=== PATIENT | male | born 1955 | race Caucasian/White ===

== ENCOUNTER 2023-04-04 08:27 | Day surgery (SDC) | payer MEDICARE, OTHER, SELFPAY ==
[2023-04-04] VITALS (10 sets, daily range): BP systolic 123–144; BP diastolic 72–100; BMI 32.2
[2023-04-04] MEDS: LOW STRENGTH ASPIRIN 81 MG PO (08:44)
[2023-04-04] MEDS: NSS 296 ML IV (08:45)
--- NOTE | 2023-04-04 11:03 | ITS.CL.CATH ---
Com[employer] - Catheterization
Cardiac Catheterization
Procedure Report:
CARDIAC CATHETERIZATION REPORT
Date of Procedure: 04/04/2023
Referring: Patrick Salgado MD
Indication: Severe mitral regurgitation
HEMODYNAMIC DATA
AO: 128/86
LV: 128/20
LEFT VENTRICULOGRAPHY: The left ventricle appears to be at upper limit of normal in size. There is mild regurgitation degree of which is difficult to quantify angiographically. The overall systolic function is normal with a visually estimated EF
55-60%
CORONARY ANGIOGRAPHY
Dominance: Right
Left Main: 10-20% distal tapering
LAD: Mild calcification of the proximal and mid LAD with a focal 30% mid LAD lesion spanning the takeoff of the small second diagonal branch.
Circumflex: 50-60% ostial/proximal stenosis and a medium to large ramus intermedius branch. The circumflex system has mild luminal irregularities.
RCA: Large dominant vessel with mild luminal irregularities
Closure Device: None-the procedure was performed via the right radial artery. The Jairo's test was normal prior to the procedure.
Radiation (mGy): 310
DAP (cm2.Gy): 22.2
Fluoroscopy time: 2.6 minutes
CONCLUSIONS
1: Normal LV wall motion with EF 55-60%
2: Mitral regurgitation which cannot be quantified
3. Mild CAD as described
4. Favor mitral valve repair without branch vessel CABG
Copy to: Patrick Salgado MD, Ricardo Avila MD, Nick Carlin MD
David Barakat MD, [facility], [facility]
== END 2023-04-04 13:10 | disposition home or self-care (01) ==
LOC: CATH 08:27
PROVIDERS: ATTENDING PHYSICIAN Internal Medicine Cardiovascular Disease; FAMILY PHYSICIAN Family Medicine
DX: I34.0 Nonrheumatic mitral (valve) insufficiency (principal); I25.10 Atherosclerotic heart disease of native coronary artery without angina pectoris; I10 Essential (primary) hypertension; Z79.82 Long term (current) use of aspirin
CPT/HCPCS: 93005; 93458; C1894; Q9967

== ENCOUNTER → 2023-04-13 14:29 | Outpatient (REF) | payer MEDICARE, OTHER, SELFPAY | LOC: RAD 14:29 | PROVIDERS: ATTENDING PHYSICIAN Thoracic Surgery (Cardiothoracic Vascular Surgery) | DX: I34.0 Nonrheumatic mitral (valve) insufficiency (principal); Z01.818 Encounter for other preprocedural examination | CPT/HCPCS: 71275; 74174; Q9967 ==

== ENCOUNTER 2023-04-19 05:04 | Inpatient (IN) | payer MEDICARE, OTHER, SELFPAY ==
[2023-04-12 12:27] VITALS: BMI 30.3
[2023-04-12 12:56] LABS: % Basophils 1.2 % (0-2); % Eosinophils 6.4 % (0-6); % Immature Granulocytes 0.3 % (0-0.5); % Neutrophils 50.1 % (42.2-75.2); Absolute Basophils 0.1 10^3/uL (0-0.2); Absolute Eosinophils 0.4 10^3/uL (0-0.7); Absolute Lymphocytes 1.9 10^3/uL (1.2-3.4); Absolute Monocytes 0.5 10^3/uL (0.1-0.6); Absolute Neutrophils 2.9 10^3/uL (1.4-6.5); Hematocrit 41.1 % (39.0-52.0); Hemoglobin 14.7 g/dL (13.0-18.0); Mean Corp Hgb Conc. 35.8 g/dL (33.0-37.0); Mean Corpuscular Volume 89.3 fL (80.0-94.0); Mean Platelet Volume 9.7 fL (7.4-10.4); Nucleated Red Blood Cells % 0 % (-); Platelet Count 243 10^3/uL (130-400); Red Cell Dist. Width 11.9 % (11.5-14.5); White Blood Cell Count 5.8 10^3/uL (4.8-10.8)
[2023-04-12 13:02] LABS: INR 1.05; PT 13.8 Sec (11.4-14.6)
[2023-04-12 13:03] LABS: APTT 28.8 Sec (23.4-35.0)
[2023-04-12 13:26] LABS: Urine Albumin Negative (Neg - Trace); Urine Bilirubin Negative (Negative); Urine Character Clear (Clear); Urine Color Straw; Urine Glucose Negative (Negative); Urine Ketone Negative (Negative); Urine Leukocyte Negative (Negative); Urine Nitrite Negative (Negative); Urine Occult Blood Negative (Negative); Urine Urobilinogen Negative (Neg - 1+); Urine pH 6.5 (5.0-9.0)
[2023-04-12 13:31] LABS: ALT (SGPT) 32 U/L (0-50); AST (SGOT) 32 U/L (17-59); Albumin 4.8 g/dl (3.5-5.0); Alkaline Phosphatase 63 U/L (38-126); Blood Urea Nitrogen 16 mg/dl (9-20); Calcium 9.6 mg/dl (8.4-10.2); Carbon Dioxide 29 mmol/L (22-30); Chloride 101 mmol/L (98-107); Direct Bilirubin 0.6 mg/dl (0.0-0.4); Estimated Creatinine Clearance > 125 ml/min; Glucose 96 mg/dl (70-99); Potassium 4.6 mmol/L (3.5-5.1); Sodium 137 mmol/L (135-145); Total Bilirubin 0.7 mg/dl (0.2-1.3); Total Protein 7.9 g/dl (6.3-8.2); eGFR > 60.00
--- NOTE | 2023-04-12 14:09 | CM ---
CM met w/ patient for PATs for planned MVR, 04/19
Pt. informs that he resides in a private, 2 story home w/ 2-3 JM w/ spouse. Functionally, patient is quite indep. at baseline without use of any assisted device. Pt. has CPAP machine, which he uses regularly.
Patient has Rx plan and uses [facility] in [place] for Rx needs.
Reviewed pre and post op routines.
Soap, shower instructions and Cardiac Surgery booklet provided.
Discussed post op restrictions, MD appointments, Cardiac Rehab and visit from CT Transitional Care RN/ pt. agreeable to this.
Plan is for CT Surgery, 04/19.
Anticipated DC plan is for home w/ CT Transitional Care RN.
Will follow.
[2023-04-19] VITALS (7 sets, daily range): BP systolic 85–149; BP diastolic 84–87; BMI 29.6
[2023-04-19] MEDS: LOPRESSOR 25 MG PO (05:21)
[2023-04-19] MEDS: MAGNESIUM OXIDE 500 MG PO (05:21)
[2023-04-19] MEDS: PROTONIX 40 MG PO (05:21)
[2023-04-19] MEDS: BACTROBAN 2% OINTMENT 1 APPLIC NASAL ×2 (05:21→19:43)
--- NOTE | 2023-04-19 05:30 | PTCARENOTE ---
pt admitted into room 2263. VS and weight obtained. pt confirms 2 showers @ home and NPO since midnight. admission questions and med rec completed. clip prep and CHG wipes done. ABO drawn and sent. pre-op meds given. at bedside.
--- NOTE | 2023-04-19 06:29 | W.CVOR.SURPR ---
CVOR Surgeon Immed Pre Op
-
I have examined this patient prior to performance of the scheduled procedure.
The patient's condition is unchanged from the time of the dictated/written History and
Physical and the patient is able to undergo the scheduled procedure.
MV Repair
[2023-04-19 07:27] LABS: ACT+ - POC 98 Seconds (82-134)
[2023-04-19 07:30] LABS: B.E. - POC -4.6 mmol/L; Glucose - POC 90 mg/dl (65-99); HCO3 - POC 20 mmol/L (21-29); Hematocrit - POC 35 % PCV (42-52); Hemodilution- POC Yes; O2 Saturation %Calculated-POC 99.7 5 (92-96); PCO2 - POC 35 mmHg (35-45); PO2 - POC 211 mmHg (80-100); Potassium - POC 3.3 mmol/L (3.6-5.0); Sodium - POC 145 mmol/L (135-145); pH - POC 7.36 (7.35-7.45)
[2023-04-19 07:50] LABS: Urine Albumin Negative (Neg - Trace); Urine Bilirubin Negative (Negative); Urine Character Clear (Clear); Urine Color Yellow; Urine Glucose Negative (Negative); Urine Ketone Negative (Negative); Urine Leukocyte Negative (Negative); Urine Nitrite Negative (Negative); Urine Occult Blood Negative (Negative); Urine Urobilinogen Negative (Neg - 1+)
--- NOTE | 2023-04-19 07:58 | CM ---
Reviewed chart. Mr. Anders is in the operating room today. Prior to admission he resides with his spouse in a two story home with three steps to enter. Prior to admission he was independent with ambulation and adls. He has a CPAP Machine at home. He
has a prescription plan and uses [facility]. Medical work-up in progress. The discharge plan is to return home with his spouse and a home visit by the Cardiothoracic Transitional Care Nurse when medically stable.
[2023-04-19 08:28] LABS: ACT+ - POC 533 Seconds (82-134)
[2023-04-19 08:55] LABS: B.E. - POC 0.7 mmol/L; Glucose - POC 122 mg/dl (65-99); HCO3 - POC 26 mmol/L (21-29); Hematocrit - POC 30 % PCV (42-52); Hemodilution- POC Yes; Hemoglobin Calculated - POC 10.3; Ionized Calcium - POC 1.08 mmol/L (1.12-1.27); O2 Saturation %Calculated-POC 99.9 5 (92-96); PCO2 - POC 46 mmHg (35-45); PO2 - POC 297 mmHg (80-100); Potassium - POC 4.7 mmol/L (3.6-5.0); Sodium - POC 139 mmol/L (135-145); pH - POC 7.37 (7.35-7.45)
[2023-04-19 09:02] LABS: ACT+ - POC 609 Seconds (82-134)
--- NOTE | 2023-04-19 09:25 | W.PN.CD ---
Today's Communication / Plan
-
MVR today.
Impression / Plan
-
Impression/Plan: 67 y/o male with HTN, HLD and severe, eccentric degenerative mitral regurgitation admitted for elective surgical mitral valve repair.
#Severe MR
-Chronic.
-In the OR today for repair.
-Expectant routine post operative management.
#Hypertension
-Chronic, stable.
-Adjust medications as needed post procedure.
#HLD
-Chronic, stable.
-Continue pravastatin.
Subjective/Interval History:
In OR for surgery.
DATA:
CTA Chest/Abdomen/Pelvis, 04/13/2023:
IMPRESSION:
Thoracic and abdominal aorta within the limits of normal in caliber, homogeneous in appearance with some calcific atherosclerotic changes. No findings to suggest thoracic or abdominal aortic dissection.
Retroaortic left renal vein, congenital variants of normal.
Coronary artery calcifications.
Elevated right hemidiaphragm.
Mild thickening of the left adrenal gland.
Mildly enlarged prostate.
Cardiac Catheterization, 04/04/2023:
LEFT VENTRICULOGRAPHY: The left ventricle appears to be at upper limit of normal in size.� There is mild regurgitation degree of which is difficult to quantify angiographically.� The overall systolic function is normal with a visually estimated EF
55-60%
CORONARY ANGIOGRAPHY
Dominance: Right
Left Main: 10-20% distal tapering
LAD: Mild calcification of the proximal and mid LAD with a focal 30% mid LAD lesion spanning the takeoff of the small second diagonal branch.
Circumflex: 50-60% ostial/proximal stenosis and a medium to large ramus intermedius branch.� The circumflex system has mild luminal irregularities.
RCA: Large dominant vessel with mild luminal irregularities
SARAH, 03/21/2023:
CONCLUSIONS
�Normal left ventricular systolic function. Left ventricular ejection fraction
�is 60%.
�
�Severe mitral regurgitation. Prolapse of the posterior (P2) mitral leaflet was
�present.
�
�No significant change since the prior study of Mar 10.
Physical Exam
Vital Signs/Labs
Vital Signs
Temp Resp BP Pulse Ox
36.7 C 18 142/84 95
04/19/23 05:15 04/19/23 05:15 04/19/23 05:04 04/19/23 05:04
04/17/23 04/18/23 04/19/23
11:59 11:59 11:59
Actual Weight 96.3 kg
04/12/23 12:36
04/12/23 12:36
PT 13.8 Sec (11.4-14.6) 04/12/23 12:36
INR 1.05 04/12/23 12:36
APTT 28.8 Sec (23.4-35.0) 04/12/23 12:36
Physical Exam
Exam deferred.
Data Reviewed
-
Date of Service: April 19, 2023
Medical Decision Making: Reviewed Test Results, Test Interpretation and Review of Case with other Provider
EKG: Report Reviewed by me
Echo: Report Reviewed by me
X-Ray/CT/US/MRI/NUC/PET: Report Reviewed by me
Medical Tests (PFT, Pathology etc): Report Reviewed by me
Labs: Labs Reviewed by me
Old Records: Reviewed
[2023-04-19 09:29] LABS: B.E. - POC 1.1 mmol/L; Glucose - POC 163 mg/dl (65-99); HCO3 - POC 26 mmol/L (21-29); Hematocrit - POC 35 % PCV (42-52); Hemodilution- POC Yes; Ionized Calcium - POC 1.12 mmol/L (1.12-1.27); O2 Saturation %Calculated-POC 99.9 5 (92-96); PCO2 - POC 42 mmHg (35-45); PO2 - POC 255 mmHg (80-100); Potassium - POC 5.7 mmol/L (3.6-5.0); Sodium - POC 139 mmol/L (135-145); pH - POC 7.41 (7.35-7.45)
[2023-04-19 09:32] LABS: ACT+ - POC 538 Seconds (82-134)
[2023-04-19 10:12] LABS: Glucose - POC 110 mg/dl (65-99); HCO3 - POC 24 mmol/L (21-29); Hematocrit - POC 34 % PCV (42-52); Hemodilution- POC Yes; Hemoglobin Calculated - POC 11.7; Ionized Calcium - POC 1.11 mmol/L (1.12-1.27); O2 Saturation %Calculated-POC 99.9 5 (92-96); PCO2 - POC 41 mmHg (35-45); PO2 - POC 280 mmHg (80-100); Potassium - POC 4.7 mmol/L (3.6-5.0); Sodium - POC 142 mmol/L (135-145); pH - POC 7.38 (7.35-7.45)
[2023-04-19 10:15] LABS: ACT+ - POC 485 Seconds (82-134)
[2023-04-19 10:43] LABS: B.E. - POC -1.6 mmol/L; Glucose - POC 103 mg/dl (65-99); HCO3 - POC 22 mmol/L (21-29); Hematocrit - POC 36 % PCV (42-52); Hemodilution- POC Yes; Hemoglobin Calculated - POC 12.1; Ionized Calcium - POC 1.08 mmol/L (1.12-1.27); O2 Saturation %Calculated-POC 99.9 5 (92-96); PCO2 - POC 34 mmHg (35-45); PO2 - POC 295 mmHg (80-100); Potassium - POC 4.1 mmol/L (3.6-5.0); Sodium - POC 143 mmol/L (135-145); pH - POC 7.42 (7.35-7.45)
[2023-04-19 10:46] LABS: ACT+ - POC 543 Seconds (82-134)
[2023-04-19 11:20] LABS: B.E. - POC -1.8 mmol/L; Glucose - POC 128 mg/dl (65-99); HCO3 - POC 23 mmol/L (21-29); Hematocrit - POC 35 % PCV (42-52); Hemodilution- POC Yes; Hemoglobin Calculated - POC 11.9; Ionized Calcium - POC 1.12 mmol/L (1.12-1.27); O2 Saturation %Calculated-POC 99.9 5 (92-96); PCO2 - POC 38 mmHg (35-45); PO2 - POC 325 mmHg (80-100); Potassium - POC 3.9 mmol/L (3.6-5.0); Sodium - POC 144 mmol/L (135-145); pH - POC 7.39 (7.35-7.45)
[2023-04-19 11:24] LABS: ACT+ - POC 508 Seconds (82-134)
[2023-04-19 11:46] LABS: ACT+ - POC 101 Seconds (82-134)
[2023-04-19 11:49] LABS: B.E. - POC -2.8 mmol/L; Glucose - POC 131 mg/dl (65-99); HCO3 - POC 23 mmol/L (21-29); Hematocrit - POC 34 % PCV (42-52); Hemodilution- POC Yes; Hemoglobin Calculated - POC 11.4; Ionized Calcium - POC 1.23 mmol/L (1.12-1.27); O2 Saturation %Calculated-POC 99.5 5 (92-96); PCO2 - POC 41 mmHg (35-45); PO2 - POC 174 mmHg (80-100); Potassium - POC 3.3 mmol/L (3.6-5.0); Sodium - POC 144 mmol/L (135-145); pH - POC 7.35 (7.35-7.45)
--- NOTE | 2023-04-19 12:28 | W.PN.CT.SURG ---
Addendum entered and electronically signed by Patrick Salgado MD 04/19/23 12:51:
Look back retrospectively, would say that he has very mild prolapsing of the anterior leaflet as well, as the free margin comes up the annular plane on the anterior leaflet. Type 2 pathology with bileaflet prolapse, worse on posterior leaflet with
flail of P2 scallop.
Original Note:
CT Surgery Operative Note
-
CARDIAC SURGERY OPERATIVE REPORT
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
Postoperative Diagnosis: Same
Procedure(s) Performed:
1. Standard sternotomy with aortic and bicaval cannulation
2. Complex/radical mitral valve repair (32 mm band annuloplasty, 2 pairs of [place]-Jose cords to the anterior leaflet, 2 pairs of [place]-Jose cords to the posterior leaflet, triangular resection of the posterior leaflet at the P2 scallop, free edge
remodeling of the posterior leaflet, free edge remodeling at the A2 A3 scallop)
3. Placement of temporary atrial ventricular pacing wires
4. Transesophageal echocardiography
Date of Surgery: 04/19/2023
Comorbidities:
1. Degenerative mitral valve disease, myxomatous mitral valve, type II pathology, symptomatic
2. Hypertension
3. Obstructive sleep apnea, CPAP
4. Obese
Attending Surgeon: Patrick Salgado MD, MS
Assistants: Tash Garvey PA-C (present and necessary to psychological assistant, retraction, suction, exposure, suture management, and wound closure under my direction)
Anesthesiology: Too Rider MD and Nora Delcid CRNA
Scrub and Circulating RNs: Sharron Rivera, IVELISSE, Victor Manuel Ruiz RN
Dry Wall Sprayer: Yasmeen Rivas CCP
Anesthesia: GETA
EBL: per perfusion records
Products: None
CPB Time: 176 minutes
Aortic Cross Clamp Time: 150 minutes (two clamp runs)
Indication(s) for Procedures: This is an otherwise healthy 67-year-old male with known mitral valve insufficiency. He is being followed in outpatient. He clearly describes an event resulting in shortness of breath that was worsening with exertion
several months ago. Further investigation of his mitral valve demonstrated a large flail segment with severe insufficiency. He met stage D symptomatology and therefore class I indication for mitral valve intervention.
Mitral Valve Description: Myxomatous generation of mitral valve leaflets, bileaflet thickening, very tall and long posterior leaflet with a flail segment at the P2 scallop with multiple torn cords, the posterior leaflet was almost as long as the
anterior leaflet. Severely dilated annulus.
Findings: His ventricular ejection fraction preoperatively was 60% with a mildly dilated left ventricle. Following surgery his EF remained the same at 60% with no regional wall motion abnormalities. His mitral valve initially was repaired with a
36 mm band and multiple cords. However valve was not able to be tested after the repair given the severe dilation of his annulus and redundant leaflets. I elected to remove the cross-clamp in order to evaluate his valve under dynamic load. This
revealed that he had pseudo prolapsing of the anterior leaflet as the free margin came up to the annular plane. There was moderate residual mitral valve insufficiency directed in the posterior direction. I elected to recross-clamp and re-arrest
the heart. I entered through the same left atrial incision and removed removed the previous 36 mm band and replaced this with a 32 mm band which was secured to place with 12 nonpledgeted, 2-0 Ethibond sutures secured with core knots. I ultimately
placed 2 pairs of CV 4 [place]-Jose cords to the anterior leaflet at the A2 scallop followed by 2 pairs of CV 4 [place]-Jose cords to the posterior leaflet at the P1 P2 scallop and P2 P3 scallops after performing a large triangular resection of the
midportion of the P2 scallop to reduce the height of the leaflet overall. The free edge of the posterior leaflet was remodeled as was the A2 scallop free edges using 5-0 prolene. Testing demonstrated a competent valve and upon removal of the
cross-clamp to coming down on cardiopulmonary bypass there was [id number] residual mitral valve insufficiency with a good coaptation height, no systolic anterior motion, and a mean gradient of 2 across the valve with an index greater than 2. RV
function was normal.
Specimen(s): Posterior leaflet cords and posterior leaflet tissue.
Prosthesis: 32 mm Ramesh Physio Flex Band, 4 pairs of CV 4 GoreTex neochords.
Description of Procedure: The patient was taken to the operating room. Their identity and procedure to be performed were verified and they were positioned supine on the operating table. Induction via general anesthesia with endotracheal intubation
was performed and central venous access and arterial monitoring were inserted. A preoperative transesophageal echocardiogram was performed to assess cardiac function and valvular function. The patient was then prepped and draped from chin to feet in
a sterile fashion. A preoperative time-out was performed with all members of the team present. A midline chest incision was performed along with median sternotomy. The innominate vein was isolated. Full heparinization was given (a total of 60,000
units). We created a pericardial well. The aortic cannulation site was chosen where it was soft, pliable, and free of calcium. Cannulation was performed with an arterial cannula in the ascending aorta, angled metal tip cannular in the superior vena
cava and straight bendable cannula in the inferior vena cava. The arterial cannula line had an appropriate bounce and correlating pressures. Next, a root vent/antegrade cannula was inserted into the ascending aorta. The ACT was confirmed to be over
400 and retrograde autologous priming was performed before commencing cardiopulmonary bypass. The pulmonary artery was away from the aorta to facilitate a clamp site. Sondergaard�s groove was developed after creating the oblique sinus. The
aortic cross-clamp was placed after decreasing the flow on the bypass and mean arterial pressure. A total of 1.2L initial dose of antegrade Del-Nido cardioplegia solution was given and planned for re-dosing every 75 minutes as necessary. There was
rapid electro-mechanical arrest of the heart at 300 cc of cardioplegia. The left ventricle was observed for distention on echocardiogram and manual palpation. Cold slush was placed into a lap on the RV and we systemically cooled to 34 degrees
centigrade.
Carbon dioxide was used to flood the field. The mitral valve was access via the intra-atrial groove followed by valve analysis. The mitral valve was repaired as described above. Also unable to test the valve intraoperatively following the repair
due to the anatomy and therefore I elected to remove the cross-clamp on the first attempt and evaluate the valve under dynamic load this revealed a posterior directed jet and redundant anterior leaflet that was pseudo prolapsing as the free margin
To the annular plane. I then re-crossclamped and delivered an additional 600 cc of antegrade cardioplegia with rapid electro myocardial quiescence at 100 cc of antegrade dosing. Previous 36 mm band was removed along with all 13 core knots. The
valve was then inspected and we repaired now with a 32 mm band as described above. The left ventricular vent was repositioned across the mitral valve into the left ventricular and the left atrium was closed with a 3-0 prolene.
De-airing maneuvers were performed and temporary bipolar ventricular pacing wires were placed on the base of the right ventricle along with temporary atrial pacing wires at the SVC right atrial junction. The patient was placed in a Trendelenburg
position and flows on bypass were lowered. The aortic cross clamp was removed and flows were slowly brought back up. The left atrial suture line was hemostatic. Transesophageal echocardiography revealed no evidence of systolic anterior motion and
ventricular function was normal. Once de-airing was satisfactory the left ventricular and root vents were removed. After verifying acceptable parameters, we initiated weaning from cardiopulmonary bypass. Once we were off cardiopulmonary bypass, the
venous cannulas was clamped and removed sequentially. A test dose of protamine was administered and the patient was monitored for any adverse reaction before resuming protamine. Once half of the protamine dose was delivered, pump suckers were turned
off and the systolic blood pressure was lowered for aortic decannulation. The aortic cannula was removed and purse strings were tied down. All cannulation sites were oversewn with a 4-0 prolene. The left atrial suture line was inspected and
hemostasis was confirmed. Mediastinal hemostasis was obtained. Two #24 Yeyo drains were placed within the pericardium and 1 additional 19 Yeyo drain into the right pleural space. The sternum was approximated with 4 #7 single and 3 #8 double
stainless steel wires. Fascia was approximated with #1 vicryl suture. The subcutaneous, dermis and epidermis were closed in layers in a running fashion. The skin wound was cleansed and dressed. Local was injected around the chest tube insertion
sites along the incision
All instrument, sponge, and needle counts were confirmed to be correct x 2 at the end of the operation. The patient was transferred to the cardiac intensive care unit in critical but stable condition.
I, Dr. Patrick Salgado, was present, scrubbed for, and performed all critical elements of this procedure.
Patrick Salgado MD, MS
Cardiothoracic Surgeon
[facility]
This dictation was created using the [employer]amify dictation system. Please excuse any grammatical, typographical, or 'sound alike' errors
--- NOTE | 2023-04-19 12:30 | PTCARENOTE ---
Received patient from OR @ 1230. Pt on levophed, precedex and insulin gtts. Ventilator settings SIMV 12/550/60%/5. BP stable. Pulse ox 90%. Apaced, asystole under pacer. ABG, CXR, EKG done per post op protocol - CTNP aware. Pt lightly sedated,
opened eyes, followed commands. Now resting. Heart sounds regular with rub. [place] locked @45 - RIJ cordis. Co/CI 5.29/2.45. Pulses are palpable radial and DP. No edema. ETT #8.0 24cm @ right lip. Lung sounds audible throughout. Bowel sounds
hypoactive. Pagan inplace draining clear yellow urine. CT Meds x2, R pleural x1. Wan zoe in place for temp 95.7
--- NOTE | 2023-04-19 12:34 | W.PN.UPDATE ---
Addendum entered and electronically signed by AMARA Mcnally 04/19/23 13:46:
#Junctional Bradycardia
- Hold BB
- Continue A-Pacing; may need eventual PPM
- Cardiology consulted
Original Note:
Update Note
Progress Note Update
IV fluids: 1000
Crystalloid:� 1100
U.O.:� 700
UF:� 4300
Blood:� None
Wires:� A+V wires
Inotropes:� None
Pressors:� Levophed
Sedatives:� Precedex
�
NEURO: sedated on precedex, pupils +2mm B/L
RESP: #8OT @24cm> /60/5. Lungs clear B/L. 2 mediastinal (30ml on arrival) and R pleural (0cc on arrival) chest tubes to -20cm suction. Sanguineous drainage
CV: RRR +S1, S2, no S3, no�rub, no murmur. Dermabond to median sternotomy. RIJ w/[place] locked @ 45cm. PA 10/03 (19); CVP 6; C.O 5.8/CI 2.8
ABD: round, soft, no BS
EXT: no edema, +2/4 DP pulses B/L, no femoral bruit, left radial A-line intact
: Pagan with clear yellow urine
�
A/P: POD #0 s/p Complex/radical mitral valve repair (32 mm band annuloplasty, 2 pairs of [place]-Jose cords to the anterior leaflet, 2 pairs of [place]-Jose cords to the posterior leaflet, triangular resection of the posterior leaflet at the P2 scallop,
free edge remodeling of the posterior leaflet, free edge remodeling at the A2 A3 scallop)
SARAH: EF�60% NML RV.
- wean FIO2 and precedex for goal extubation
>>Current Vent settings SIMV /60/5; ABG & CXR pending
>>continue CXR daily and PRN
- Wean Levo for goal MAPs >65; CI >2
- Monitor CT output
>> Will start ASA 81mg 6 hours post procedure if no bleeding
�
# acute surgical blood loss anemia-expected
- trend CBC per protocol
- t/c Fe and Vit C on POD #1
�
#Hypertension
- Will restart home meds as able
- Will start BB POD#1 if able
# Hyperglycemia (A1C 6.0)
- insulin infusion x 24h
�
# Hyperlipidemia
- resume�pravastatin when able
[2023-04-19 12:37] LABS: Glucose - Point of Care 129 mg/dl (70-99)
[2023-04-19] MEDS: ALBUMIN 5% 250 IV ×2 (12:43→14:46)
[2023-04-19] MEDS: PEPCID 20 MG IV ×2 (12:44→19:43)
[2023-04-19] MEDS: NSS (PRESERVATIVE FREE) 8 ML IV ×2 (12:44→19:43)
[2023-04-19 12:49] LABS: B.E. -2.3 mmol/L; HCO3 24.6 mmol/L (21-28); Ionized Calcium 1.23 mMOL/L (1.15-1.33); O2 Saturation % 93.8 % (94-98); PCO2 50 mmHg (35-48); PO2 73 mmHg (83-108); Potassium 3.8 mMOL/L (3.5-5.1); Sodium 139 mMOL/L (136-145)
[2023-04-19 12:50] LABS: Hematocrit 35.6 % (39.0-52.0); Hemoglobin 12.3 g/dL (13.0-18.0); Platelet Count 170 10^3/uL (130-400)
[2023-04-19 13:02] LABS: INR 1.45; PT 17.8 Sec (11.4-14.6)
[2023-04-19 13:09] LABS: Blood Urea Nitrogen 17 mg/dl (9-20); Estimated Creatinine Clearance 112 ml/min; Glucose 138 mg/dl (70-99); Magnesium 3.5 mg/dl (1.6-2.3)
--- NOTE | 2023-04-19 13:22 | CON.INTV ---
Consultation
Consultation Request
Date/Time Consultation Requested: 04/19/2023-1 PM
Date/Time Consultation Performed: 04/19/2023-1:30 PM
Requesting Provider: Dr. Salgado
Performing Provider: Dr. Anthony
Reason for Consultation: Postoperative ventilator/critical care management
Medical History
-
Chief Complaint: Severe mitral regurgitation
History of Present Illness:
67-year-old male with history of hypertension, hyperlipidemia and severe eccentric degenerative mitral regurgitation underwent mitral valve repair-waiter/waitress bar consulted for postoperative ventilator/critical care management 04/19/2023. Patient is
sedated on the ventilator and review of systems was unobtainable. Intraoperative records were reviewed. Chest tube output noted. Pressor management noted.
Past Medical History
Past Medical History: None (Hypertension. Hyperlipidemia. Severe eccentric degenerative mitral regurgitation. Right knee torn meniscus.)
Social History
Tobacco: Non-smoker
Alcohol: Occasional
Drug: None
Living: With Family
Occupational Exposures: No known tuberculosis exposure
Environmental Exposures: No known asbestos exposure
Family History
Family History: Reviewed & Not Pertinent (CAD)
Allergies / Home Medications
Allergies
Allergy/AdvReac Type Severity Reaction Status Date / Time
No Known Allergies Allergy Verified 04/19/23 05:17
Home Medications
Medication Instructions Recorded Confirmed Last Taken Type
L.acidoph, paracasei,B. lactis 10 1 ea PO HS 03/04/20 04/19/23 04/11/23 08:00 History
billion cell capsule
amlodipine 10 mg tablet (Norvasc) 10 mg PO DAILY 03/04/20 04/19/23 04/18/23 08:00 History
aspirin 81 mg tablet,delayed 81 mg PO HS 03/04/20 04/19/23 04/18/23 08:00 History
release
hydrochlorothiazide 12.5 mg tablet 12.5 mg PO DAILY 03/04/20 04/19/23 04/18/23 08:00 History
losartan 50 mg tablet 50 mg PO DAILY 03/04/20 04/19/23 04/17/23 08:00 History
multivitamin 1 ea PO DAILY 03/09/20 04/19/23 04/18/23 08:00 History
ascorbic acid (vitamin C) 500 mg 500 mg PO HS 03/21/23 04/19/23 04/18/23 08:00 History
tablet (Vitamin C)
fiber 1 cap PO BID 03/21/23 04/19/23 04/18/23 08:00 History
omega 0-mra-yvg-fish oil 1,200 mg 1 cap PO BID 03/21/23 04/19/23 04/12/23 08:00 History
(144 mg-216 mg) capsule (Fish Oil)
vitamin E 100 unit tablet 100 unit PO HS 04/04/23 04/19/23 04/17/23 21:00 History
pravastatin 40 mg tablet 40 mg PO DAILY 04/10/23 04/19/23 04/18/23 08:00 History
Review of Systems
-
Unable to Obtain full review of systems at this time due to: Patient Intubation
Vitals / Labs / Diagnostic Testing
Vital Signs
Temp Resp BP Pulse Ox
96.2 F L 18 142/84 90
04/19/23 13:00 04/19/23 05:15 04/19/23 05:04 04/19/23 12:30
Lab Data
04/19/23 12:36
Laboratory Results
04/19/23
12:36
PT 17.8 H
INR 1.45
APTT 29.0
pH 7.30 L
pCO2 50 H
pO2 73 L
HCO3 24.6
O2 Delivery Level
Diagnostic Testing:
Physical Exam
-
Exam:
Well-nourished and well-developed in no apparent distress
HEENT-atraumatic, normocephalic, oral tracheal intubation
Heart-regular rate and rhythm-no murmurs, rubs or gallops
Chest-clear to auscultation, no wheezes, crackles, median sternotomy bandage is not removed
Abdomen soft nondistended
Extremities-no cyanosis, clubbing, edema and good peripheral pulses
Integument-intact, no rashes, lesions or ecchymosis
Neurologically not alert, not oriented, not moving any of his extremities sedated on a ventilator
Assessment
-
67-year-old male with history of hypertension, hyperlipidemia and severe eccentric degenerative mitral regurgitation underwent mitral valve repair-waiter/waitress bar consulted for postoperative ventilator/critical care management 04/19/2023.
Assessment
Mitral regurgitation-severe eccentric degenerative
Status post mitral valve repair via standard sternotomy-complex/radical mitral valve repair-Dr. Salgado-04/19/2023
Mild anemia-hemoglobin 12.3
Mild hyperglycemia-blood sugar 138
Elevated right hemidiaphragm
Conditions present prior to admission:
Hypertension.
Hyperlipidemia.
Severe eccentric degenerative mitral regurgitation-status post repair 04/19/2023
Elevated right hemidiaphragm
Right knee torn meniscus.
Plan
Ventilator settings reviewed-minute ventilation increased-some acidosis
FiO2 will be weaned-currently on 60% with marginal saturations-May be related to lying flat with elevated right hemidiaphragm, does not seem to be significantly fluid overloaded
Arterial blood gases will be monitored
Spontaneous breathing trial will be attempted with hopeful extubation after anesthesia/sedation wear off
Pulmonary artery catheter parameters will be followed
Pressors/antihypertensive/inotropes/diuretics will be provided as needed
Monitor chest tube output
Monitor hemoglobin
Monitor platelet count and coags
Transfuse blood product if needed
CT surgery following chest tubes
Monitor blood sugar
Insulin drip per protocol
Aspiration precautions
VAP prevention protocol
DVT prophylaxis
Early nutrition
Early mobilization
With elevated right hemidiaphragm that is significant I would consider outpatient pulm evaluation with PFTs and possibly sniff testing
Critical care statement: A total of 46 minutes of critical care time was provided for this patient today. This includes management of ventilator, spontaneous breathing trial, arterial blood gases, pressors, of unstable vital signs, evaluation of the
patient at bedside, reviewing the patient's pertinent medical records including radiographs, microbiology, laboratory evaluations, and discussion with primary team and critical care nursing.
Diagnostic data:
Chest x-ray 04/19/2023-no pneumothorax, endotracheal tube tip in trachea above the sunita, elevated right hemidiaphragm, markedly low lung volumes
CT chest abdomen and pelvis 04/13/2023-thoracic and abdominal aorta within normal caliber, retroaortic left renal vein, elevated right hemidiaphragm, mildly elevated prostate
Echocardiogram 03/21/2023-EF 60%, severe mitral regurgitation
Cardiac catheterization 04/04/2023-EF 55-60%, 10 to 20% distal tapering left main, 30% mid LAD lesion, 50 to 60% ostial/proximal stenosis
Data Reviewed
-
EKG: Report reviewed by me
Radiology: Report reviewed by me
Medical Tests (Nuc Med, Echo etc): Report reviewed by me
Labs: Labs reviewed by me
Old Records: Reviewed
Critical Care Time (in minutes): 46
[2023-04-19] MEDS: NSS 500 IV (13:23)
[2023-04-19] MEDS: NOVOLOG FLEXPEN SC ×2 (13:23→15:47)
[2023-04-19] MEDS: TYLENOL PO ×3 (13:24→21:49)
[2023-04-19] MEDS: KCL 50 IV ×2 (13:24→14:27)
[2023-04-19] MEDS: STERILE WATER FOR INJECTION 16 ML IV ×2 (13:25)
[2023-04-19] MEDS: PRAVACHOL PO (13:25)
[2023-04-19] MEDS: ZINACEF 1500 MG IV ×2 (13:25)
[2023-04-19 13:27] LABS: HCO3 22.2 mmol/L (21-28); O2 Saturation % 91.4 % (94-98); PCO2 44 mmHg (35-48); PO2 63 mmHg (83-108); pH 7.31 (7.35-7.45)
[2023-04-19 14:08] LABS: Glucose - Point of Care 149 mg/dl (70-99)
[2023-04-19 14:16] LABS: B.E. -3.9 mmol/L; HCO3 21.6 mmol/L (21-28); Ionized Calcium 1.08 mMOL/L (1.15-1.33); O2 Saturation % 93.8 % (94-98); PCO2 40 mmHg (35-48); PO2 68 mmHg (83-108); Sodium 139 mMOL/L (136-145); pH 7.34 (7.35-7.45)
[2023-04-19] MEDS: VENTOLIN NEBULES 2.5 MG INH (14:44)
[2023-04-19] MEDS: CALCIUM CHLORIDE 10% SYRINGE 50 ML IV (14:55)
[2023-04-19] MEDS: CALCIUM CHLORIDE 10% SYRINGE 50 MG IV (14:55)
[2023-04-19 15:17] LABS: Glucose - Point of Care 133 mg/dl (70-99)
[2023-04-19 15:36] LABS: B.E. -3.7 mmol/L; HCO3 20.4 mmol/L (21-28); Ionized Calcium 1.16 mMOL/L (1.15-1.33); O2 Saturation % 98.3 % (94-98); PCO2 33 mmHg (35-48); PO2 111 mmHg (83-108); Potassium 4.4 mMOL/L (3.5-5.1); Sodium 139 mMOL/L (136-145)
--- NOTE | 2023-04-19 16:00 | PTCARENOTE ---
Apaced AAI @70 BPM. VSS on levo, precedex and insulin. Assessment unchanged. Pt awakes follows simple commands. Ventilator changes per J2EE DEVELOPER - noted in ventilator worklist. CT with minimal output. UO adequate 40-50ml/hr. CI 2.58. 40 meq KCL, 1 gm
CaCl, 2 albumin administered per prn orders. , Celso updated at bedside.
[2023-04-19 16:09] LABS: Glucose - Point of Care 115 mg/dl (70-99)
[2023-04-19] MEDS: ASPIRIN 300 MG RECTAL (16:18)
[2023-04-19 17:02] LABS: Glucose - Point of Care 123 mg/dl (70-99)
[2023-04-19 17:09] LABS: Hematocrit 33.1 % (39.0-52.0); Hemoglobin 11.9 g/dL (13.0-18.0); Platelet Count 189 10^3/uL (130-400)
[2023-04-19 17:13] LABS: HCO3 22.7 mmol/L (21-28); Ionized Calcium 1.36 mMOL/L (1.15-1.33); O2 Saturation % 96.6 % (94-98); PCO2 42 mmHg (35-48); PO2 86 mmHg (83-108); Potassium 4.8 mMOL/L (3.5-5.1); Sodium 139 mMOL/L (136-145); pH 7.34 (7.35-7.45)
[2023-04-19] MEDS: OFIRMEV 100 IV (17:30)
[2023-04-19] MEDS: STERILE WATER FOR INJECTION 8.30000000000000071 ML IV (17:31)
[2023-04-19] MEDS: ZINACEF 750 MG IV (17:31)
[2023-04-19 19:06] LABS: Glucose - Point of Care 105 mg/dl (70-99)
[2023-04-19] MEDS: SENOKOT-S 1 TABLET PO (19:44)
--- NOTE | 2023-04-19 20:00 | PTCARENOTE ---
Apaced @ 70. VSS remains on levo and insulin. Pt extubated @1725. AAOx3. Tolerating 6L NC. Using IS- 1500ml. Pt tolerating ice chips. Ofirmev given for pain. CTs stable. CI 2.7. Assessment otherwise unchanged.
[2023-04-19 21:18] LABS: Glucose - Point of Care 128 mg/dl (70-99)
[2023-04-19] MEDS: SKELAXIN 800 MG PO (21:28)
[2023-04-19] MEDS: ROXICODONE 5 MG PO (21:28)
[2023-04-19 23:01] LABS: Glucose - Point of Care 119 mg/dl (70-99)
--- NOTE | 2023-04-19 23:40 | RESPNOTE ---
PT wears CPAP for HS use and is compliant at home. He brought his nasal pillow interface to the hospital as directed for use with our machine but unfortunately, the adapter that connects the interface is not present in the PT's bag. PT was shown
our nasal mask for use and does not want to wear it at this time. PT states that his will bring the appropriate adapter for use tomorrow, but feels more comfortable with just the nasal cannula in place for tonight as he doesn't think that he
will be able to tolerate use with mask. Will check with the PT tomorrow and plan for CPAP use tomorrow night.
[2023-04-20] VITALS (24 sets, daily range): BP systolic 106–127; BP diastolic 64–76; PULSE 70; O2SAT 92–95; BMI 30.9
--- NOTE | 2023-04-20 | PTCARENOTE ---
assumed PT care @ 2300, PT aaox4 w complaints of pain, morphine given for pain. see worklist for detailed assesmnet
[2023-04-20] MEDS: TYLENOL 650 MG PO ×6 (00:34→23:53)
[2023-04-20] MEDS: MORPHINE SULFATE 4 MG IV ×2 (00:39→04:00)
[2023-04-20 01:01] LABS: Glucose - Point of Care 116 mg/dl (70-99)
[2023-04-20] MEDS: ZINACEF 750 MG IV ×2 (03:13→09:18)
[2023-04-20 03:14] LABS: Glucose - Point of Care 122 mg/dl (70-99)
[2023-04-20] MEDS: STERILE WATER FOR INJECTION 8.30000000000000071 ML IV ×2 (03:14→09:18)
[2023-04-20 03:32] LABS: Hemoglobin 11.1 g/dL (13.0-18.0); Mean Corp Hgb Conc. 35.8 g/dL (33.0-37.0); Mean Corpuscular Volume 89.3 fL (80.0-94.0); Mean Platelet Volume 10.4 fL (7.4-10.4); Platelet Count 168 10^3/uL (130-400); Red Blood Cell Count 3.47 10^6/uL (4.70-6.10); Red Cell Dist. Width 12.3 % (11.5-14.5); White Blood Cell Count 15.6 10^3/uL (4.8-10.8)
[2023-04-20 03:58] LABS: Blood Urea Nitrogen 20 mg/dl (9-20); Calcium 8.5 mg/dl (8.4-10.2); Carbon Dioxide 22 mmol/L (22-30); Chloride 111 mmol/L (98-107); Estimated Creatinine Clearance 112 ml/min; Glucose 110 mg/dl (70-99); Magnesium 2.4 mg/dl (1.6-2.3); Potassium 4.3 mmol/L (3.5-5.1); Sodium 138 mmol/L (135-145); eGFR > 60.00
--- NOTE | 2023-04-20 04:00 | PTCARENOTE ---
VSS no change from previous assessment
[2023-04-20 04:49] LABS: Glucose - Point of Care 122 mg/dl (70-99)
--- NOTE | 2023-04-20 05:41 | W.PN.CT ---
Today's Communication / Plan
-
- Doing well. No major events overnight. PA cath removed at midnight, successfully extubated POD#0 to nasal cannula
- CI 2.85 CO 6.15 PA 32/15 RAP 11 SVR 897 at midnight prior to PA cath removal
- Tele review: 100% AV paced (AAI 70, 10 mA), paused this am showing underlying junctional bradycardia. EKG obtained.
- Gtt's: Levo @ 3 mcs, insulin titrated (currently 2.3 U)
- CTs: 2M 140/[address] 10/75 out in 12/24 hrs
- UOP 410/760, Cr pre op 0.7, now 0.7 this AM
- wean down/off O2 as able, IS use reinforced
- Continue current meds: ASA, lasix, mag ox, KCL
- continue outpatient meds: pravastatin
- OOB, ambulate as tolerated
Assessment / Plan
-
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
resection of the posterior leaflet at the P2 scallop, free edge remodeling of the posterior leaflet, free edge remodeling at the A2 A3 scallop) by Dr. Salgado POD #1
Post op SARAH: �Normal biventricular systolic function with an LVEF of 60% by visual inspection and normal wall-thickness and size.� Severe mitral regurgitation resulting from P2 flail.� Both leaflets are enlarged.� Minimal valvular calcification.�
The tricuspid and aortic valves are grossly normal in function.� The thoracic aorta is normal in size and mostly free of atheromatous disease except for a small, discrete lesion in the arch.
-HTN
-HLD
-ERNIE on CPAP
-Obesity with BMI 29
-Elevated R hemidiaphragm
-Hyperglycemia (A1c 6%)
-Acute post op blood loss anemia
-Acute post op atelectasis
Subjective
Procedure
S/P Complex/radical mitral valve repair (32 mm band annuloplasty, 2 pairs of [place]-Jose cords to the anterior leaflet, 2 pairs of [place]-Jose cords to the posterior leaflet, triangular resection of the posterior leaflet at the P2 scallop, free edge
remodeling of the posterior leaflet, free edge remodeling at the A2 A3 scallop) on 04/19/[address] Salgado
-
Date of Service: April 20, 2023
Objective Data
-
Lab Results
04/20/23 02:57
04/20/23 02:57
PT 17.8 Sec (11.4-14.6) H 04/19/23 12:36
INR 1.45 04/19/23 12:36
APTT 29.0 Sec (23.4-35.0) 04/19/23 12:36
Vital Signs
Vital Signs
Temp Pulse Resp BP Pulse Ox
99.4 F 70 14 142/84 91
04/20/23 00:00 04/20/23 04:30 04/20/23 04:30 04/19/23 05:04 04/20/23 04:30
CT Intake/Output/Weight
04/19/23 04/19/23 04/20/23
06:59 18:59 06:59
Intake Total 1148.3 / 2087.1 938.8 / 2087.1
Output Total 555 / 1115 560 / 1115
Balance 593.3 / 972.1 378.8 / 972.1
SaO2: 91
Physical Exam
-
General: Awake, Oriented and AOx3
Cardiovascular: No Murmurs, No Rub and Other (100% AV paced)
Respiratory: Clear and Equal
Sternum: Stable
Incision: Clean, Dry and Intact
Extremities: Edema +1
Data Reviewed
-
Lab Results: Results Reviewed
Medications: Active Meds Reviewed
Chest X-Ray: Report Reviewed
ECG: Report Reviewed
[2023-04-20] MEDS: ROXICODONE 5 MG PO ×3 (06:29→16:14)
[2023-04-20 06:44] LABS: Glucose - Point of Care 115 mg/dl (70-99)
--- NOTE | 2023-04-20 07:43 | W.PN.INTV ---
Today's Communication / Plan
Recommendations
Wean oxygen
Suspect some hypoxemia related to elevated right hemidiaphragm
Incentive spirometry
Increase activity
Monitor chest tube output
Outpatient follow-up with Dr. Richardson
If insulin drip discontinued and transferred to telemetry then hay baler will sign off-call pulmonary if respiratory issues arise
Assessment
-
67-year-old male with history of hypertension, hyperlipidemia and severe eccentric degenerative mitral regurgitation underwent mitral valve repair-hay baler consulted for postoperative ventilator/critical care management 04/19/2023.
Assessment
Mitral regurgitation-severe eccentric degenerative
Status post mitral valve repair via standard sternotomy-complex/radical mitral valve repair-Dr. Salgado-04/19/2023
Mild anemia-hemoglobin 12.3
Mild hyperglycemia-blood sugar 138
Elevated right hemidiaphragm
Conditions present prior to admission:
Hypertension.
Hyperlipidemia.
Severe eccentric degenerative mitral regurgitation-status post repair 04/19/2023
Elevated right hemidiaphragm
Right knee torn meniscus.
Obstructive sleep lacox-[id number] 7 cm-followed by Dr. Richardson
Plan
Tolerated extubation
Wean FiO2
Encourage incentive spirometry
Increase activity
Aspiration precautions
Pulmonary artery catheter and arterial line will be removed
Pressors have been weaned
Continue to monitor chest tube output
Follow hemoglobin
Continue to follow platelet count and coags
Transfuse blood product as needed
CT surgery following chest tubes as well
Follow blood sugar
Insulin supplementation continues as needed
Early nutrition
Early mobilization
DVT prophylaxis
Patient will be transferred to telemetry phase-call pulmonary if respiratory issues arise
With elevated right hemidiaphragm that is significant I would consider outpatient pulm evaluation with PFTs and possibly sniff testing
Patient is followed by Dr. Richardson for ERNIE-reviewed last office notes-chest x-ray 2014 'NAD'-unclear if elevated diaphragm at that point, CT chest 2015 subtle right lower lobe patchy airspace [id number] with Dr. Richardson at discharge
Reviewed the patient's pertinent medical records including radiographs, microbiology, laboratory evaluations, and discussion with primary team, and critical care nursing.
Diagnostic data:
Chest x-ray 04/19/2023-no pneumothorax, endotracheal tube tip in trachea above the sunita, elevated right hemidiaphragm, markedly low lung volumes
CT chest abdomen and pelvis 04/13/2023-thoracic and abdominal aorta within normal caliber, retroaortic left renal vein, elevated right hemidiaphragm, mildly elevated prostate
Echocardiogram 03/21/2023-EF 60%, severe mitral regurgitation
Cardiac catheterization 04/04/2023-EF 55-60%, 10 to 20% distal tapering left main, 30% mid LAD lesion, 50 to 60% ostial/proximal stenosis
Subjective Dataa
Subjective Data
Date of Service:
Date of Service: April 20, 2023
Chief Complaint: Radiography Technician Follow Up and Vent Management Follow Up
Subjective:
Tolerated extubation, still with marginally low oxygen, pain controlled, no chest congestion or productive cough or abdominal pain
Review of Systems
General: Other (Per HPI)
Objective Data
Data Reviewed
Vital Signs / I&O / Oxygen:
Vital Signs
Temp Pulse Resp BP Pulse Ox
98.5 F 70 28 142/84 91
04/20/23 06:39 04/20/23 06:30 04/20/23 06:30 04/19/23 05:04 04/20/23 06:30
Intake and Output
04/19/23 04/20/23 04/21/23
06:59 06:59 06:59
Intake Total 7.1 / 7.1
Output Total 1195 / 1195
Balance 892.1 / 892.1
SaO2 [CPAP/PSV] 95
SaO2 [SIMV] 100
SaO2 91
Nasal Cannula flow liters per 6
minute
Physical Exam
General: Respiratory Distress (n) and Comfortable
HEENT: Normocephalic, Anicteric and Moist Mucous Membranes
Cardiovascular: Regular Rhythm
Respiratory: Wheeze (n), Crackles, Rhonchi, Non-Labored Respirations, Accessory Resp Muscle Use (n) and Stridor (n)
GI: Soft, Non Distended and Non Tender
Neurology: Awake, Alert and No Motor Deficits
Skin: Warm, Good Color, Cyanosis (n) and Jaundice (n)
Labs/Micro/Reports
Lab Data
04/20/23 02:57
04/20/23 02:57
Laboratory Results
04/19/23 04/19/23 04/19/23
12:36 13:19 14:01
PT 17.8 H
INR 1.45
APTT 29.0
pH 7.30 L 7.31 L 7.34 L
pCO2 50 H 44 40
pO2 73 L 63 L 68 L
HCO3 24.6 22.2 21.6
O2 Delivery Level
04/19/23 04/19/23
15:10 17:02
PT
INR
APTT
pH 7.40 7.34 L
pCO2 33 L 42
pO2 111 H 86
HCO3 20.4 L 22.7
O2 Delivery Level Not Reportable Not Reportable
--- NOTE | 2023-04-20 07:59 | PTCARENOTE ---
pt received from previous RN, oriented, in bed. 100% A-paced on the monitor, A&V wires, AAI 70/10. underlying junctional rhythm, HR 30-40s. SBP 120s. palpable pulses, trace/+1 generalized edema. pt on 7LNC, 90-95% POX. lungs diminished in R base. IS
encouraged. CT x3, no air leak or crepitus noted. pt abdomen s/n, denies n/v. tolerating clears. hypoactive BS. Pagan in place. sternal incision approximated, surgical adhesive in place. chest tube site c/d/i. RIJ cordis maintained. PIV. insulin gtt
running per protocol. L radial [place] flushed, zeroed, and calibrated. see worklist for VS, I&O, and assessment.
[2023-04-20 08:24] LABS: Glucose - Point of Care 107 mg/dl (70-99)
[2023-04-20] MEDS: KCL PO (09:12)
[2023-04-20] MEDS: PRAVACHOL 40 MG PO (09:17)
[2023-04-20] MEDS: SENOKOT-S 1 TABLET PO ×2 (09:17→20:04)
[2023-04-20] MEDS: MAGNESIUM OXIDE PO ×2 (09:17→09:24)
[2023-04-20] MEDS: SKELAXIN 800 MG PO ×2 (09:17→17:58)
[2023-04-20] MEDS: LOW STRENGTH ASPIRIN 81 MG PO (09:17)
[2023-04-20 09:19] LABS: Glucose - Point of Care 103 mg/dl (70-99)
[2023-04-20] MEDS: BACTROBAN 2% OINTMENT 1 APPLIC NASAL ×2 (09:19→20:05)
[2023-04-20] MEDS: NOVOLOG FLEXPEN SC (09:20)
--- NOTE | 2023-04-20 09:39 | PTCARENOTE ---
Pagan care performed, Pagan dc'd as ordered. L radial [place] dc'd as ordered, dressing c/d/i, no s/s of bleeding or hematoma. R pleural CT dc'd as ordered, chest tube dressing c/d/i. orthostatic VS completed. gown and linens changed. oral hygiene
performed. IS encouraged.
[2023-04-20] MEDS: VENTOLIN NEBULES 2.5 MG INH (09:50)
--- NOTE | 2023-04-20 10:02 | W.PN.CD ---
Today's Communication / Plan
-
- Wean off Pressors
- OOB to chair
- Chest tube management
- Atrial pacing - continued. Hold Metoprolol for now
- If no atrial pacing noted, consider ppm.
Impression / Plan
-
Impression/Plan: 67 y/o male with HTN, HLD and severe, eccentric degenerative mitral regurgitation admitted for elective surgical mitral valve repair.
# SSS
- sinus arrest
- epicardial atrial leads are pacing.
- Underlying junctional escape in 40s
- Now atrial paced rhythm
- Re-evaluate if sinus wakes up then can avoid PPM
#Severe MR
-s/p complex/radical mitral valve repair (32 mm band annuloplasty, 2 pairs of [place]-Jose cords to the anterior leaflet, 2 pairs of [place]-Jose cords to the posterior leaflet, triangular resection of the posterior leaflet at the P2 scallop, free edge
remodeling of the posterior leaflet, free edge remodeling at the A2 A3 scallop) by Dr. Salgado POD #1
-On Levo - titrate off
-Expectant routine post operative management.
#Hypertension
-Chronic, stable.
-Adjust medications as needed post procedure.
#HLD
-Chronic, stable.
-Continue pravastatin.
Subjective/Interval History:
Feeling well. Feels bradycardia when atria pacing rate is reduced.
DATA:
CTA Chest/Abdomen/Pelvis, 04/13/2023:
IMPRESSION:
Thoracic and abdominal aorta within the limits of normal in caliber, homogeneous in appearance with some calcific atherosclerotic changes. No findings to suggest thoracic or abdominal aortic dissection.
Retroaortic left renal vein, congenital variants of normal.
Coronary artery calcifications.
Elevated right hemidiaphragm.
Mild thickening of the left adrenal gland.
Mildly enlarged prostate.
Cardiac Catheterization, 04/04/2023:
LEFT VENTRICULOGRAPHY: The left ventricle appears to be at upper limit of normal in size.� There is mild regurgitation degree of which is difficult to quantify angiographically.� The overall systolic function is normal with a visually estimated EF
55-60%
CORONARY ANGIOGRAPHY
Dominance: Right
Left Main: 10-20% distal tapering
LAD: Mild calcification of the proximal and mid LAD with a focal 30% mid LAD lesion spanning the takeoff of the small second diagonal branch.
Circumflex: 50-60% ostial/proximal stenosis and a medium to large ramus intermedius branch.� The circumflex system has mild luminal irregularities.
RCA: Large dominant vessel with mild luminal irregularities
SARAH, 03/21/2023:
CONCLUSIONS
�Normal left ventricular systolic function. Left ventricular ejection fraction
�is 60%.
�
�Severe mitral regurgitation. Prolapse of the posterior (P2) mitral leaflet was
�present.
�
�No significant change since the prior study of Mar 10.
Physical Exam
Vital Signs/Labs
Vital Signs
Temp Pulse Resp BP Pulse Ox
98.4 F 70 12 106/64 94
04/20/23 08:00 04/20/23 09:56 04/20/23 09:56 04/20/23 09:09 04/20/23 09:56
04/19/23 04/20/23 04/21/23
06:59 06:59 06:59
Actual Weight 96.3 kg 100.6 kg
04/20/23 02:57
04/20/23 02:57
PT 17.8 Sec (11.4-14.6) H 04/19/23 12:36
INR 1.45 04/19/23 12:36
APTT 29.0 Sec (23.4-35.0) 04/19/23 12:36
Magnesium 2.4 mg/dl (1.6-2.3) H 04/20/23 02:57
Physical Exam
Constitutional: No acute distress and Comfortable
EENT: Anicteric and Moist mucous membranes
Cardiovascular: Rhythm & rate is regular, Pedal edema is absent, Systolic murmur absent and JVD present
Respiratory: Respiratory effort normal, Wheeze Absent and Crackles Absent
GI: Soft, Non tender and Normal bowel sounds
Neuro/Psych: Alert, Oriented and AO x 3
Other: Skin
Data Reviewed
-
Date of Service: April 20, 2023
Medical Decision Making: Reviewed Test Results, Independent Historian Assessment and Test Interpretation
EKG: Tracing Personally Visualized and interpreted
Echo: Report Reviewed by me
X-Ray/CT/US/MRI/NUC/PET: Image Personally Visualized and interpreted
Labs: Labs Reviewed by me
Old Records: Reviewed
Critical Care Time (in minutes): 35
[2023-04-20 10:33] LABS: Glucose - Point of Care 133 mg/dl (70-99)
--- NOTE | 2023-04-20 10:56 | CM ---
Reviewed chart. Met with Mr. Anders to review discharge plans. He states he is feeling well, just tired. He states prior to admission he resides with his spouse Celso in a two story home with two steps to enter. He states he has a full flight of
steps to get to bedroom/full bathroom. He states he has a powder room on the first floor. He states prior to admission he was independent with ambulation and adls. He has a CPAP Machine at home and no other DME. We reviewed a home visit by the
Cardiothoracic Transitional Care Nurse. He is agreeable to a home visit. Medical work-up in progress. The discharge plan is to return home with his spouse and a home visit by the Cardiothoracic Transitional Care Nurse when medically stable.
[2023-04-20] MEDS: NOVOLOG FLEXPEN 4 UNITS SC ×2 (11:06→16:37)
[2023-04-20] MEDS: NSS IV (11:06)
--- NOTE | 2023-04-20 12:00 | PTCARENOTE ---
VSS, no changes in assessment. Roxicodone 5mg PO given for pain. pt placed back to bed, attempted to void, no urge, unable. pt brought own CPAP from home.
[2023-04-20 12:17] LABS: Glucose - Point of Care 130 mg/dl (70-99)
[2023-04-20] MEDS: NOVOLIN R INSULIN INFUSION 100 IV (14:03)
[2023-04-20 14:06] LABS: Glucose - Point of Care 147 mg/dl (70-99)
--- NOTE | 2023-04-20 14:58 | W.PN.UPDATE ---
Update Note
Progress Note Update
Patient was evaluated and the epicardial PPM was changed from 70 bpm to 40 bpm and had junctional escape in 40s. He started having PVCs with heart rate in 50s. Atrial pacing had successfully suppressed the PVCs. Still sinus node is not working.
--- NOTE | 2023-04-20 15:27 | PTCARENOTE ---
pt VSS, no changes in assessment. pt resting in bed. 3LNC, 92% POX. bladder scanned for 300ml, PA aware. no urge to void.
[2023-04-20 16:13] LABS: Glucose - Point of Care 89 mg/dl (70-99)
[2023-04-20] MEDS: TYLENOL PO (16:14)
[2023-04-20] MEDS: ProAIR HFA INHALER 2 PUFF INH (16:59)
[2023-04-20] MEDS: FLOMAX 0.400000000000000022 MG PO (17:20)
--- NOTE | 2023-04-20 17:34 | W.PN.UPDATE ---
Update Note
Progress Note Update
Patient remains in junctional rhythm underneath atrial pacing @ 70BPM. Holding rate lowering agents. Pleural chest tube removed. Continuing insulin infusion for pre-diabetes (A1C 6.0). Patient has own CPAP machine with setting 4cm H2O. Pagan removed
this morning and bladder scanned for 300cc approx 1500. Flomax ordered.
[2023-04-20 17:55] LABS: Glucose - Point of Care 146 mg/dl (70-99)
--- NOTE | 2023-04-20 18:26 | PTCARENOTE ---
Skelaxin PRN given for pain. pt bladder scanned for >336ml. unable to void standing up. EXHIBITION ORGANISER aware. pt straight cath'd for 400ml. pt OOB in chair. IS encouraged.
--- NOTE | 2023-04-20 18:38 | W.PN.ANS.POP ---
Anesthesia Post Operative
- Anesthesia Post Op Note
Vital Signs Stable-See Nursing Note: Yes
Airway Patent: Yes
Adequate Pain Control: Yes
Change in Mental Status: No
Current Postoperative Nausea & Vomiting: No
Anesthesia Complications: No
General Anesthetic Recall: No
Unplanned Admission: No
Post Op Hydration Adequate: Yes
- -
Pt OOB to chair, resting. VSS
[2023-04-20] MEDS: MAGNESIUM OXIDE 500 MG PO (20:04)
--- NOTE | 2023-04-20 20:20 | PTCARENOTE ---
Assumed care of patient at 1900. Patient found OOB in chair at time of assessment. Patient is AOx4, follows commands appropriately, moves all extremities. Lung sounds are diminished in the right base, respirations are shallow, patient is on 3L O2
via midflow NC with saO2 at 92%. IS encouraged currently pulling 1000mL on device. There are 2xmed CT with wall suction draining red sanguineous to an atrium. Heart sounds are regular, there is a rub audible on auscultation, patient is currently
100% A paced on the monitor. Patient has A+V wires with settings at 70/10 AAI. Patient has normal palpable pulses and +1 generalized anasarca is noted. Patient has a soft nontender abdomen with hypoactive BS. Patient is possibly having some urinary
retention saenz was dc'd during the day patient unable to void was straight cathed at 1800 for approx 400mL will continue to monitor overnight. Patient has a sternal incision approx with surg adhesive that is ELEVATOR CONSTRUCTOR ELECTRIC. There is an ABD dressing over CT
wounds that is CDI. Patient has a R IJ cordis and R AC PIV. Patient has insulin gtt running at 4.5 currently column 3 according to glycemic protocol. VSS. Patient has no complaints at this time.
[2023-04-20 20:25] LABS: Glucose - Point of Care 125 mg/dl (70-99)
[2023-04-20] MEDS: FLEXERIL 10 MG PO (21:50)
[2023-04-20 22:09] LABS: Glucose - Point of Care 118 mg/dl (70-99)
[2023-04-21] VITALS (16 sets, daily range): BP systolic 96–138; BP diastolic 58–98; PULSE 70; O2SAT 94–95; BMI 30.6
[2023-04-21] LABS: Glucose - Point of Care 103 mg/dl (70-99)
--- NOTE | 2023-04-21 00:40 | PTCARENOTE ---
Patient reassessed. VSS. Patient remains on 3L via midflow NC. Patient refusing CPAP tonight. No c/o pain scheduled tylenol and flexeril administered. Remains 100% A paced on the monitor. Patient is stable.
[2023-04-21 02:01] LABS: Glucose - Point of Care 153 mg/dl (70-99)
[2023-04-21] MEDS: ROXICODONE 5 MG PO ×2 (03:12→15:24)
[2023-04-21 03:32] LABS: Hematocrit 27.2 % (39.0-52.0); Hemoglobin 9.7 g/dL (13.0-18.0); Mean Corp Hgb Conc. 35.7 g/dL (33.0-37.0); Mean Corpuscular Volume 89.8 fL (80.0-94.0); Red Blood Cell Count 3.03 10^6/uL (4.70-6.10); Red Cell Dist. Width 12.6 % (11.5-14.5); White Blood Cell Count 12.2 10^3/uL (4.8-10.8)
[2023-04-21 03:55] LABS: Blood Urea Nitrogen 26 mg/dl (9-20); Calcium 8.7 mg/dl (8.4-10.2); Carbon Dioxide 27 mmol/L (22-30); Chloride 100 mmol/L (98-107); Estimated Creatinine Clearance > 125 ml/min; Glucose 108 mg/dl (70-99); Potassium 4.4 mmol/L (3.5-5.1); Sodium 132 mmol/L (135-145); eGFR > 60.00
[2023-04-21 03:58] LABS: Mean Platelet Volume 10.4 fL (7.4-10.4); Platelet Count 92 10^3/uL (130-400)
[2023-04-21 04:03] LABS: Glucose - Point of Care 85 mg/dl (70-99)
--- NOTE | 2023-04-21 05:16 | W.PN.CT ---
Today's Communication / Plan
-
-pod #2
-underlying rhythm: junctional 44 bpm with BP 96/58 (supine). Holding BB and Amio
-continue a-pacing @ 70 bpm
-urinary retention - straight cath x2 (last night and this am)- Flomax started 04/20
-CT output: 2 meds 85/175 in 12/24 hrs (no air leak)
-labs pending
-current meds (ASA, Pravachol)
-encourage IS, OOB
Assessment / Plan
-
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
resection of the posterior leaflet at the P2 scallop, free edge remodeling of the posterior leaflet, free edge remodeling at the A2 A3 scallop) by Dr. Salgado on 04/19/23, POD #2
Post op SARAH: �Normal biventricular systolic function with an LVEF of 60% by visual inspection and normal wall-thickness and size.� Severe mitral regurgitation resulting from P2 flail.� Both leaflets are enlarged.� Minimal valvular calcification.�
The tricuspid and aortic valves are grossly normal in function.� The thoracic aorta is normal in size and mostly free of atheromatous disease except for a small, discrete lesion in the arch.
-HTN
-HLD
-ERNIE on CPAP
-Obesity with BMI 29
-Elevated R hemidiaphragm
-Hyperglycemia (A1c 6%)
-Acute postop junctional rhythm
-Acute post op blood loss anemia
-Acute post op atelectasis
-Acute postop urinary retention- straight cathed 400 cc on 04/20 - started on Flomax
Discussed patient care with: Nursing and Care Team
Subjective
Procedure
S/P Complex/radical mitral valve repair (32 mm band annuloplasty, 2 pairs of Anderson-Jose cords to the anterior leaflet, 2 pairs of Anderson-Jose cords to the posterior leaflet, triangular resection of the posterior leaflet at the P2 scallop, free edge
remodeling of the posterior leaflet, free edge remodeling at the A2 A3 scallop) on 04/19/[address] Salgado
-
Date of Service: April 21, 2023
Objective Data
-
PT 17.8 Sec (11.4-14.6) H 04/19/23 12:36
INR 1.45 04/19/23 12:36
APTT 29.0 Sec (23.4-35.0) 04/19/23 12:36
Vital Signs
Vital Signs
Temp Pulse Resp BP Pulse Ox
98 F 70 20 102/66 92
04/21/23 00:00 04/21/23 04:00 04/21/23 04:00 04/21/23 04:00 04/21/23 04:00
CT Intake/Output/Weight
04/20/23 04/20/23 04/21/23
06:59 18:59 06:59
Intake Total 938.8 / 2087.1 598.3 / 760.8 162.5 / 760.8
Output Total 640 / 1195 850 / 935 85 / 935
Balance 298.8 / 892.1 -251.7 / -174.2 77.5 / -174.2
SaO2: 92
Physical Exam
-
General: Awake and AOx3
Cardiovascular: Regular rate & rhythm, No Murmurs and Rub
Respiratory: Decreased Breath Sounds
Sternum: Stable
Incision: Clean, Dry and Dressing Intact
Extremities: Other (trace edema b/l, 2+ DP b/l)
Data Reviewed
-
Lab Results: Results Reviewed
Medications: Active Meds Reviewed
Chest X-Ray: Report Reviewed and Image Reviewed
ECG: Report Reviewed and Image Reviewed
[2023-04-21 06:10] LABS: Glucose - Point of Care 120 mg/dl (70-99)
[2023-04-21] MEDS: TYLENOL 650 MG PO ×4 (06:23→21:13)
[2023-04-21] MEDS: TYLENOL PO ×2 (06:25→09:56)
--- NOTE | 2023-04-21 06:41 | SUR.OPER ---
Patient reassessed. VSS. Patient with urinary retention scanned for 514 cc attempted void which was unsuccessful. Straight cathed for 520 cc. AM EKG performed CT PA at bedside to lower PM settings for EKG. Patient's underlying rhythm appears to be
slow junctional HR 40s-50s. Previous PM settings restarted AAI 70/10. AM labs obtained. Hygiene care provided. Assisted patient oob to chair. Patient is stable.
--- NOTE | 2023-04-21 07:30 | PTCARENOTE ---
Assumed care of patient from embedded firmware developer RN. AAO x 3 sitting up in the chair. C/o sternal discomfort. A paced via epicardial pacemaker. Slow Junctional rhythm when rate on ppm lowered. 3 L NC 92%, Using IS independently. Chest tubes x 2 to -
20 cm suction. No air leaks or crepitus noted. Abdomen with active bowel sounds t/o . No urge to void yet this am since last straight cathed. Surgical incision c,d,i. Pulses palpable. trace edema appreciated. Insulin drip maintained per
glycemic protocol.
[2023-04-21] MEDS: FLOMAX 0.400000000000000022 MG PO (07:53)
[2023-04-21] MEDS: SKELAXIN 800 MG PO (07:53)
[2023-04-21] MEDS: LASIX 40 MG IV (07:54)
[2023-04-21] MEDS: KCL 20 MEQ PO (07:54)
[2023-04-21] MEDS: LOW STRENGTH ASPIRIN 81 MG PO (07:54)
[2023-04-21] MEDS: PRAVACHOL 40 MG PO (07:54)
[2023-04-21] MEDS: SENOKOT-S 1 TABLET PO ×2 (07:54→21:13)
[2023-04-21] MEDS: BACTROBAN 2% OINTMENT 1 APPLIC NASAL ×2 (07:54→21:13)
[2023-04-21] MEDS: MAGNESIUM OXIDE 500 MG PO ×2 (07:54→21:13)
[2023-04-21 09:00] LABS: Glucose - Point of Care 152 mg/dl (70-99)
--- NOTE | 2023-04-21 09:28 | PTCARENOTE ---
Ambulated into bathroom and able to void 600 ml brynn urine w/o difficulty. Pt then brushed teeth and washed face. Assisted into bed, bilateral mediastinal chest tubes removed per Md order. Pt tolerated w/o issue. Will continue to monitor.
[2023-04-21] MEDS: NOVOLOG FLEXPEN SC (09:56)
--- NOTE | 2023-04-21 10:10 | W.PN.CD ---
Today's Communication / Plan
-
Atrial pacing support
Avoid negative chronotropic meds
Watch for resolution of sinus node dysfunction
Impression / Plan
-
67 y/o male with HTN, HLD and severe, eccentric degenerative mitral regurgitation admitted for elective surgical mitral valve repair.
Sinus node dysfunction early after MV repair
- Anticipate he will not need a pacemaker
- Avoid negative chronotropic meds (BB, amio, etc)
- Monitor
- PPM only if sinus node does not recover over time.
MV repair for severe MR
- s/p complex/radical mitral valve repair (32 mm band annuloplasty, 2 pairs of [place]-Jose cords to the anterior leaflet, 2 pairs of [place]-Jose cords to the posterior leaflet, triangular resection of the posterior leaflet at the P2 scallop, free edge
remodeling of the posterior leaflet, free edge remodeling at the A2 A3 scallop) by Dr. Salgado on 04/19/2023
- Intraop SARHA: After repair: Trace MR, mean gradient 2 mmHg, normal LVEF
Post op anemia, procedural blood loss
Mild CAD at cath 03/2023: Max lesion 50-60% ostial-prox LCx
HTN
Mixed hyperlipidemia
Elevated right hemidiaphragm (see preop)
- Etiology unknnown
Subjective/Interval History:
No complaints
DATA:
CTA Chest/Abdomen/Pelvis, 04/13/2023:
IMPRESSION:
Thoracic and abdominal aorta within the limits of normal in caliber, homogeneous in appearance with some calcific atherosclerotic changes. No findings to suggest thoracic or abdominal aortic dissection.
Retroaortic left renal vein, congenital variants of normal.
Coronary artery calcifications.
Elevated right hemidiaphragm.
Mild thickening of the left adrenal gland.
Mildly enlarged prostate.
Cardiac Catheterization, 04/04/2023:
LEFT VENTRICULOGRAPHY: The left ventricle appears to be at upper limit of normal in size.� There is mild regurgitation degree of which is difficult to quantify angiographically.� The overall systolic function is normal with a visually estimated EF
55-60%
CORONARY ANGIOGRAPHY
Dominance: Right
Left Main: 10-20% distal tapering
LAD: Mild calcification of the proximal and mid LAD with a focal 30% mid LAD lesion spanning the takeoff of the small second diagonal branch.
Circumflex: 50-60% ostial/proximal stenosis and a medium to large ramus intermedius branch.� The circumflex system has mild luminal irregularities.
RCA: Large dominant vessel with mild luminal irregularities
SARAH, 03/21/2023:
CONCLUSIONS
�Normal left ventricular systolic function. Left ventricular ejection fraction
�is 60%.
�
�Severe mitral regurgitation. Prolapse of the posterior (P2) mitral leaflet was
�present.
�
�No significant change since the prior study of Mar 10.
Physical Exam
Vital Signs/Labs
Vital Signs
Temp Pulse Resp BP Pulse Ox
98.7 F 70 16 98/64 92
04/21/23 08:00 04/21/23 09:00 04/21/23 08:00 04/21/23 07:22 04/21/23 08:25
04/20/23 04/21/23 04/22/23
06:59 06:59 06:59
Actual Weight 100.6 kg 99.6 kg
PT 17.8 Sec (11.4-14.6) H 04/19/23 12:36
INR 1.45 04/19/23 12:36
APTT 29.0 Sec (23.4-35.0) 04/19/23 12:36
Magnesium 2.4 mg/dl (1.6-2.3) H 04/20/23 02:57
Physical Exam
Constitutional: No acute distress
EENT: Anicteric
Cardiovascular: Rhythm & rate is regular and Pedal edema is absent
Respiratory: Respiratory effort normal, Rhonchi Present and Other (decreased at both bases)
GI: Soft and Distention absent
Neuro/Psych: AO x 3
Data Reviewed
-
Date of Service: April 21, 2023
[2023-04-21 11:00] LABS: Glucose - Point of Care 116 mg/dl (70-99)
[2023-04-21] MEDS: PROTONIX 40 MG PO (11:15)
[2023-04-21] MEDS: NSS 500 IV (11:16)
--- NOTE | 2023-04-21 11:25 | PTCARENOTE ---
Received pt from previous RN; pt AAOx3 and resting comfortably in chair; A paced on monitor and VSS; Epicardial A/V wires set to AAI 70/10; + rub; Lungs diminished; IS to 2000; positive bowel sounds; pt voiding clear yellow urine; palpable pulses
throughout; trace lower extremity edema noted; surgical sites C/D/I; RIJ Cordis and PIV x1 all patent.
--- NOTE | 2023-04-21 12:33 | CM ---
Chart reviewed. Patient is independent of ADLS, lives with his spouse in a 2 STH, 3 JM, 0 DME. Patient does use a CPAP machine at home. Plan is for the patient to return home with [facility] Transitional Care RN. CM to follow
--- NOTE | 2023-04-21 15:59 | PTCARENOTE ---
Assessment unchanged; A paced on monitor and VSS; pt resting comfortably in bed.
[2023-04-21 16:39] LABS: Glucose - Point of Care 142 mg/dl (70-99)
[2023-04-21] MEDS: FLEXERIL 10 MG PO (21:13)
--- NOTE | 2023-04-21 21:15 | PTCARENOTE ---
Patient received OOB in chair watching television. Patient A+A+Ox3. No neurological deficits noted. No c/o headache, dizziness or lightheadedness. O2 at 3L via NC. SaO2 95%. No s/s of respiratory distress. Mild MUNOZ. Chest tube dressing
intact. Epicardial Temporary Pacemaker - AAI - Rate 70, Output 10, Sensitivity 0.5 - 100% A-Pacing - Pacemaker dependent. Patient with no c/o chest pain, pressure or discomfort. Normoactive bowel sounds. No BM. No c/o nausea. No vomiting.
Voiding without difficulty. Sternal incision intact and open to air. Positive, palpable pulses. Generalized edema. Patient with no c/o back or flank pain. Patient ambulated to bathroom with minimal assistance. Patient to bed. Right I.J.
Cordis - Intact and patent - Saline flush 10 ml/hr. Assessment as documented.
[2023-04-21 21:25] LABS: Glucose - Point of Care 114 mg/dl (70-99)
[2023-04-22] VITALS (14 sets, daily range): BP systolic 117–161; BP diastolic 66–89; PULSE 68; O2SAT 94; BMI 29.9
[2023-04-22] MEDS: TYLENOL PO
--- NOTE | 2023-04-22 | PTCARENOTE ---
Patient sleeping without difficulty. No changes from previous assessment.
[2023-04-22] MEDS: ROXICODONE 5 MG PO ×2 (01:25→23:21)
[2023-04-22] MEDS: TYLENOL 650 MG PO ×2 (04:24→08:17)
[2023-04-22] MEDS: SKELAXIN 800 MG PO ×3 (04:25→20:04)
--- NOTE | 2023-04-22 04:45 | PTCARENOTE ---
Patient A+A+Ox3. No neurological deficits noted. AM lab work collected and sent. Patient ambulated to bathroom with minimal assistance. O2 3L. SaO2 93%. 100% A-Paced. HR 70. No c/o headache, dizziness or lightheadedness. Patient brushed
teeth and washed face. OOB to chair. Standing scale weight 97.3 kg. Assessment/Interventions as documented.
[2023-04-22 04:58] LABS: Hematocrit 27.8 % (39.0-52.0); Hemoglobin 9.8 g/dL (13.0-18.0); Mean Corp Hgb Conc. 35.3 g/dL (33.0-37.0); Mean Corpuscular Hgb 31.8 pg (27.0-31.0); Mean Corpuscular Volume 90.3 fL (80.0-94.0); Mean Platelet Volume 10.9 fL (7.4-10.4); Platelet Count 110 10^3/uL (130-400); Red Blood Cell Count 3.08 10^6/uL (4.70-6.10); Red Cell Dist. Width 12.2 % (11.5-14.5); White Blood Cell Count 9.4 10^3/uL (4.8-10.8)
[2023-04-22 05:20] LABS: Blood Urea Nitrogen 18 mg/dl (9-20); Calcium 8.4 mg/dl (8.4-10.2); Carbon Dioxide 30 mmol/L (22-30); Chloride 103 mmol/L (98-107); Estimated Creatinine Clearance > 125 ml/min; Glucose 102 mg/dl (70-99); Potassium 4.5 mmol/L (3.5-5.1); Sodium 133 mmol/L (135-145); eGFR > 60.00
--- NOTE | 2023-04-22 05:57 | W.PN.CT ---
Today's Communication / Plan
-
-pod #3
-no issues overnight
-a-paced @ 70. Continue to monitor underlying rhythm- junctional low 50s, asymptomatic
-holding Amio and BB
-diuresed wit 40 iv Lasix / (UO 1600/3400)
-urinary retention resolved
-encourage IS, OOB
-appreciate everyone's input
Assessment / Plan
-
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
resection of the posterior leaflet at the P2 scallop, free edge remodeling of the posterior leaflet, free edge remodeling at the A2 A3 scallop) by Dr. Salgado on 04/19/23, POD #3
Post op SARAH: �Normal biventricular systolic function with an LVEF of 60% by visual inspection and normal wall-thickness and size.� Severe mitral regurgitation resulting from P2 flail.� Both leaflets are enlarged.� Minimal valvular calcification.�
The tricuspid and aortic valves are grossly normal in function.� The thoracic aorta is normal in size and mostly free of atheromatous disease except for a small, discrete lesion in the arch.
-HTN
-HLD
-ERNIE on CPAP
-Obesity with BMI 29
-Elevated R hemidiaphragm
-Hyperglycemia (A1c 6%)
-Acute postop junctional rhythm/sinus node dysfunction
-Acute post op blood loss anemia
-Acute postop thrombocytopenia
-Acute post op atelectasis
-Acute postop urinary retention- straight cathed x2, started on Flomax- resolved
-Acute postop hyponatremia
Discussed patient care with: Nursing and Care Team
Subjective
Procedure
S/P Complex/radical mitral valve repair (32 mm band annuloplasty, 2 pairs of [place]-Jose cords to the anterior leaflet, 2 pairs of [place]-Jose cords to the posterior leaflet, triangular resection of the posterior leaflet at the P2 scallop, free edge
remodeling of the posterior leaflet, free edge remodeling at the A2 A3 scallop) on 04/19/[address] Salgado
-
Date of Service: April 22, 2023
Objective Data
-
PT 17.8 Sec (11.4-14.6) H 04/19/23 12:36
INR 1.45 04/19/23 12:36
APTT 29.0 Sec (23.4-35.0) 04/19/23 12:36
Vital Signs
Vital Signs
Temp Pulse Resp BP Pulse Ox
98.0 F 70 16 140/74 93
04/22/23 01:15 04/22/23 01:15 04/22/23 01:15 04/22/23 01:15 04/22/23 01:15
CT Intake/Output/Weight
04/21/23 04/21/23 04/22/23
06:59 18:59 06:59
Intake Total 663.3 / 1261.6 507.0 / 1057.0 550 / 1057.0
Output Total 635 / 1485 1805 / 3405 1600 / 3405
Balance 28.3 / -223.4 -1298.0 / -2348.0 -1050 / -2348.0
SaO2: 93
Physical Exam
-
General: Awake and AOx3
Cardiovascular: Regular rate & rhythm, No Murmurs and Rub
Respiratory: Decreased Breath Sounds
Sternum: Stable
Incision: Clean, Dry and Dressing Intact
Extremities: Other (trace edema b/l, 2+ DP b/l)
Data Reviewed
-
Lab Results: Results Reviewed
Medications: Active Meds Reviewed
Chest X-Ray: Report Reviewed and Image Reviewed
ECG: Report Reviewed and Image Reviewed
--- NOTE | 2023-04-22 07:00 | W.PN.CD ---
Today's Communication / Plan
-
Furosemide 40 mg IV this morning.
Repeat 12 lead EKG.
Daily chronotropic challenge (decrease epicardial pacemaker to 40 BPM and monitor for sinus recovery).
Consider changing pravastatin to atorvastatin 40 mg daily.
If BP control needed, start home losartan.
Consider fluoroscopic sniff test.
Incentive spirometry.
Ambulation.
Impression / Plan
-
Impression/Plan: 67 y/o male with HTN, HLD and severe, eccentric degenerative mitral regurgitation admitted for elective surgical mitral valve repair, now with SSS/Sinus arrest.
#Sinus node dysfunction
-Early after MV repair.
-Hopefully he will not need a pacemaker.
-Avoid negative chronotropic meds (BB, amio, etc).
-Appears to be in NSR with ambulation. Repeat 12 lead EKG.
-Daily chronotropic challenge (decrease epicardial pacemaker to 40 bpm and monitor for sinus node recovery).
#MV repair for severe MR
-s/p complex/radical mitral valve repair (32 mm band annuloplasty, 2 pairs of [place]-Jose cords to the anterior leaflet, 2 pairs of [place]-Jose cords to the posterior leaflet, triangular resection of the posterior leaflet at the P2 scallop, free edge
remodeling of the posterior leaflet, free edge remodeling at the A2 A3 scallop) by Dr. Salgado on 04/19/2023.
-Routine post-operative management per CT surgery.
-Chest tubes discontinued.
-Repeat diuretics this morning.
-Encourage incentive spirometry.
-Increase ambulation.
#Post op anemia
-Acute, procedural blood loss.
-Stabilized.
-Somewhat dilutional. Monitor for improvement with diuresis.
#Non-obstructive CAD
-Chronic, stable.
-Seen on cath 03/2023: Max lesion 50-60% ostial-prox LCx.
-He would benefit from high dose, high potency statin. Consider changing pravastatin to atorvastatin 40 mg daily.
#HTN
-Chronic, stable.
-As BP recovers, restart home anti-hypertensives, starting with losartan.
-We will adjust use of beta blockers for HTN based on recovery of sinus rhythm vs. PPM placement.
#Mixed hyperlipidemia
-Chronic, stable.
-Currently on pravastatin 40 mg daily.
-Given presence of ASCVD, he may benefit from high dose, high potency statin.
#Elevated right hemidiaphragm (see preop)
-Appears chronic, stable. Seen on CXR from 02/01/2023.
-Etiology unknown.
-Consider fluoroscopic sniff test to evaluate for hemidiaphragm paralysis.
Subjective/Interval History:
Furosemide 40 mg IV given yesterday.
Weight remains up 1 kg from admission weight but down 2.3 kg from yesterday (97.3 <-- 99.6 <-- 96.3).
Remains on 3LNC.
Blood pressure remains stable.
CXR shows elevated right hemidiaphragm (appears chronic - seen on CXR from 02/01/2023).
EKG shows underlying junctional escap with RSR` pattern (incomplete RBBB), however, ambulating back from the [facility] [place], the patient was seen to be in NSR at 86 bpm.
Hbg stable.
DATA:
CTA Chest/Abdomen/Pelvis, 04/13/2023:
IMPRESSION:
Thoracic and abdominal aorta within the limits of normal in caliber, homogeneous in appearance with some calcific atherosclerotic changes. No findings to suggest thoracic or abdominal aortic dissection.
Retroaortic left renal vein, congenital variants of normal.
Coronary artery calcifications.
Elevated right hemidiaphragm.
Mild thickening of the left adrenal gland.
Mildly enlarged prostate.
Cardiac Catheterization, 04/04/2023:
LEFT VENTRICULOGRAPHY: The left ventricle appears to be at upper limit of normal in size.� There is mild regurgitation degree of which is difficult to quantify angiographically.� The overall systolic function is normal with a visually estimated EF
55-60%
CORONARY ANGIOGRAPHY
Dominance: Right
Left Main: 10-20% distal tapering
LAD: Mild calcification of the proximal and mid LAD with a focal 30% mid LAD lesion spanning the takeoff of the small second diagonal branch.
Circumflex: 50-60% ostial/proximal stenosis and a medium to large ramus intermedius branch.� The circumflex system has mild luminal irregularities.
RCA: Large dominant vessel with mild luminal irregularities
SARAH, 03/21/2023:
CONCLUSIONS
�Normal left ventricular systolic function. Left ventricular ejection fraction
�is 60%.
�
�Severe mitral regurgitation. Prolapse of the posterior (P2) mitral leaflet was
�present.
�
�No significant change since the prior study of Mar 10.
Physical Exam
Vital Signs/Labs
Vital Signs
Temp Pulse Resp BP Pulse Ox
37.0 C 70 16 124/67 93
04/22/23 04:20 04/22/23 05:00 04/22/23 04:20 04/22/23 04:20 04/22/23 04:20
04/20/23 04/21/23 04/22/23
11:59 11:59 11:59
Actual Weight 100.6 kg 99.6 kg 97.3 kg
04/22/23 04:35
04/22/23 04:35
PT 17.8 Sec (11.4-14.6) H 04/19/23 12:36
INR 1.45 04/19/23 12:36
APTT 29.0 Sec (23.4-35.0) 04/19/23 12:36
Magnesium 2.4 mg/dl (1.6-2.3) H 04/20/23 02:57
Physical Exam
Constitutional: No acute distress and Comfortable
EENT: Anicteric and Moist mucous membranes
Cardiovascular: Rhythm & rate is regular, Pedal edema is absent, JVD pressure is normal, S1S2 is normal and Murmur/rub/gallop absent
Respiratory: Respiratory effort normal, Lungs clear to auscul., Wheeze Absent, Crackles Absent and Rhonchi Absent
GI: Soft, Distention absent, Flat, Non tender and Normal bowel sounds
Neuro/Psych: AO x 3
Data Reviewed
-
Date of Service: April 22, 2023
Medical Decision Making: Reviewed Test Results, Independent Historian Assessment, Test Interpretation and Review of Case with other Provider
EKG: Tracing Personally Visualized and interpreted and Report Reviewed by me
Echo: Tracing Personally Visualized and interpreted and Report Reviewed by me
X-Ray/CT/US/MRI/NUC/PET: Image Personally Visualized and interpreted and Report Reviewed by me
Medical Tests (PFT, Pathology etc): Report Reviewed by me
Labs: Labs Reviewed by me
Old Records: Reviewed
--- NOTE | 2023-04-22 07:30 | PTCARENOTE ---
Assumed care of patient from architecture analyst RN. AAO x 3, sitting up in the chair. A paced 70 on monitor via epicardial pacemaker set to AAI 70/10. 2 L NC 96%, IS to 1000. Lungs clear but decreased. Abdomen soft, non tender, with active bowel sounds
t/o. Appetite good. Voiding w/o issue. Sternal incision c,d,i. Pulses palpable. Plan for day discussed.
--- NOTE | 2023-04-22 08:00 | PTCARENOTE ---
Pt ambulated entire [facility] without assistance on room air. Pulse ox maintained at 95%, some MUNOZ but quickly resolved w/o intervention. HR SR on monitor 70-80's with ambulating. EKG obtained per Cardiology , confirmed NSR.
Epicardial pacemaker rate dropped to 50. SR maintained with Rest.
[2023-04-22] MEDS: LASIX 40 MG IV (08:17)
[2023-04-22] MEDS: PROTONIX 40 MG PO (08:17)
[2023-04-22] MEDS: KCL 20 MEQ PO (08:17)
[2023-04-22] MEDS: PRAVACHOL 40 MG PO (08:17)
[2023-04-22] MEDS: FLOMAX 0.400000000000000022 MG PO (08:17)
[2023-04-22] MEDS: LOW STRENGTH ASPIRIN 81 MG PO (08:17)
[2023-04-22] MEDS: MAGNESIUM OXIDE 500 MG PO ×2 (08:17→19:44)
[2023-04-22] MEDS: SENOKOT-S 1 TABLET PO ×2 (08:17→19:44)
[2023-04-22] MEDS: BACTROBAN 2% OINTMENT 1 APPLIC NASAL ×2 (08:18→19:44)
--- NOTE | 2023-04-22 12:38 | PTCARENOTE ---
Ambulating at franco in hallway and room, pain well managed with muscle relaxer. Remains NSR 70's. No pacing noted. Assessment unchanged from prior.
[2023-04-22] MEDS: NSS IV (12:41)
--- NOTE | 2023-04-22 15:16 | PTCARENOTE ---
RT IJ cordis removed. Pt tolerated w/o issue. PIV flushed and patient. Laying in bed w/o complaint. Assessment unchanged from prior.
--- NOTE | 2023-04-22 20:30 | PTCARENOTE ---
Patient received OOB in chair watching movie. Patient A+A+Ox3. No neurological deficits noted. Room air. SaO2 93%. Chest tube dressing intact. Sinus Rhythm with occasional PVC's. Heart rate 70's. Epicardial Temporary Pacemaker - AV Wires -
AAI Rate 50, Output 10, Sensitivity 0.5. No c/o chest pain, pressure or discomfort. Bowel and bladder within normal limits. Patient ambulating in room and to bathroom by self. Steady gait. Sternal incision - Surgical adhesive - Intact and open
to air. Assessment as documented.
[2023-04-22] MEDS: FLEXERIL 10 MG PO (23:21)
[2023-04-23] VITALS (12 sets, daily range): BP systolic 119–142; BP diastolic 67–74; BMI 29.5
--- NOTE | 2023-04-23 00:30 | PTCARENOTE ---
Patient sleeping without difficulty. CPAP intact. No further changes from previous assessment.
--- NOTE | 2023-04-23 03:47 | W.PN.CT ---
Today's Communication / Plan
-
-pod #4
-no issues overnight
-regained nsr 70s on 04/22, PVCs
-holding BB and Amio
-follow 2v-CXR
-encourage IS, OOB, ambulate
Assessment / Plan
-
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
resection of the posterior leaflet at the P2 scallop, free edge remodeling of the posterior leaflet, free edge remodeling at the A2 A3 scallop) by Dr. Salgado on 04/19/23, POD #4
Post op SARAH: �Normal biventricular systolic function with an LVEF of 60% by visual inspection and normal wall-thickness and size.� Severe mitral regurgitation resulting from P2 flail.� Both leaflets are enlarged.� Minimal valvular calcification.�
The tricuspid and aortic valves are grossly normal in function.� The thoracic aorta is normal in size and mostly free of atheromatous disease except for a small, discrete lesion in the arch.
-HTN
-HLD
-ERNIE on CPAP
-Obesity with BMI 29
-Elevated R hemidiaphragm
-Hyperglycemia (A1c 6%)
-Acute postop junctional rhythm/sinus node dysfunction
-Acute post op blood loss anemia
-Acute postop thrombocytopenia
-Acute post op atelectasis
-Acute postop urinary retention- straight cathed x2, started on Flomax- resolved
-Acute postop hyponatremia
Discussed patient care with: Nursing and Care Team
Subjective
Procedure
S/P Complex/radical mitral valve repair (32 mm band annuloplasty, 2 pairs of [place]-Joes cords to the anterior leaflet, 2 pairs of [place]-Jose cords to the posterior leaflet, triangular resection of the posterior leaflet at the P2 scallop, free edge
remodeling of the posterior leaflet, free edge remodeling at the A2 A3 scallop) on 04/19/[address] Salgado
-
Date of Service: April 23, 2023
Objective Data
-
PT 17.8 Sec (11.4-14.6) H 04/19/23 12:36
INR 1.45 04/19/23 12:36
APTT 29.0 Sec (23.4-35.0) 04/19/23 12:36
Vital Signs
Vital Signs
Temp Pulse Resp BP Pulse Ox
98.7 F 73 16 127/66 91
04/22/23 23:15 04/23/23 01:30 04/22/23 23:15 04/22/23 23:15 04/22/23 23:15
CT Intake/Output/Weight
04/22/23 04/22/23 04/23/23
06:59 18:59 06:59
Intake Total 1080 / 1587.0 250 / 730 480 / 730
Output Total 2000 / 3805
Balance -920 / -2218.0 250 / 730 480 / 730
SaO2: 91
Physical Exam
-
General: Awake and AOx3
Cardiovascular: Regular rate & rhythm, No Murmurs and No Rub
Respiratory: Clear
Sternum: Stable
Incision: Clean, Dry and Dressing Intact
Extremities: Other (trace edema b/l)
--- NOTE | 2023-04-23 04:15 | PTCARENOTE ---
Patient A+A+Ox3. No neurological deficits noted. No c/o pain or discomfort. AM lab work collected and sent. Patient ambulated to bathroom to void, wash face and brush teeth. Resting in chair watching television. Standing scale weight 95.9 kg.
I.S. 2000ml. Assessment/Interventions as documented.
[2023-04-23 04:46] LABS: Hematocrit 28.6 % (39.0-52.0); Hemoglobin 10.5 g/dL (13.0-18.0); Mean Corp Hgb Conc. 36.7 g/dL (33.0-37.0); Mean Corpuscular Hgb 32.7 pg (27.0-31.0); Mean Corpuscular Volume 89.1 fL (80.0-94.0); Mean Platelet Volume 10.5 fL (7.4-10.4); Platelet Count 126 10^3/uL (130-400); Red Blood Cell Count 3.21 10^6/uL (4.70-6.10); Red Cell Dist. Width 12.1 % (11.5-14.5); White Blood Cell Count 7.7 10^3/uL (4.8-10.8)
[2023-04-23 05:10] LABS: Blood Urea Nitrogen 20 mg/dl (9-20); Calcium 9.1 mg/dl (8.4-10.2); Carbon Dioxide 29 mmol/L (22-30); Chloride 98 mmol/L (98-107); Estimated Creatinine Clearance > 125 ml/min; Glucose 106 mg/dl (70-99); Magnesium 2.2 mg/dl (1.6-2.3); Potassium 4.2 mmol/L (3.5-5.1); Sodium 134 mmol/L (135-145); eGFR > 60.00
--- NOTE | 2023-04-23 08:30 | PTCARENOTE ---
Patient care assumed from nightshift RN. Patient fully alert and oriented. Denies significant pain. Afebrile with temp of 98.2 F. OOB in chair, standby assist, ambulates frequently in halls and very well tolerated. Room air, saturations 94-95%,
lungs clear, slightly diminished at bilateral bases. NSR w/ Monomorphic PVCs, rate in 80s. Palpable bilateral upper and lower extremity pulses. Blood pressure 139/74. Epicardial wires intact, only A-wire in use, settings 50/10. Voids appropriately.
No BM today.
[2023-04-23 09:17] LABS: Glucose - Point of Care 131 mg/dl (70-99)
[2023-04-23] MEDS: BACTROBAN 2% OINTMENT 1 APPLIC NASAL (09:20)
[2023-04-23] MEDS: FLOMAX 0.400000000000000022 MG PO (09:26)
[2023-04-23] MEDS: LOW STRENGTH ASPIRIN 81 MG PO (09:26)
[2023-04-23] MEDS: SENOKOT-S 1 TABLET PO ×2 (09:26→19:41)
[2023-04-23] MEDS: PRAVACHOL 40 MG PO (09:26)
[2023-04-23] MEDS: PROTONIX 40 MG PO (09:26)
[2023-04-23] MEDS: KCL 20 MEQ PO (11:25)
[2023-04-23] MEDS: LASIX 40 MG IV (11:25)
[2023-04-23] MEDS: MAGNESIUM OXIDE 500 MG PO ×2 (11:25→19:41)
[2023-04-23] MEDS: NSS IV (11:27)
--- NOTE | 2023-04-23 12:29 | W.DCSUMMARY ---
Documented by User: AMARA Turner 04/23/23 12:42
Discharge Summary
Discharge Data
Date of Admission: 04/19/23
Date of Discharge: 04/24/23
-
Pending Results: No
Hospital Course
Primary care physician: Nick Carlin
Outpatient medical csr: Ricardo Avila
Inpatient consultants: [facility] Cardiology
Procedures:
1. Complex mitral valve repair
Primary Diagnosis:
1. Severe mitral valve regurgitation
Secondary Diagnoses:
1. Hypertension
2. Prediabetes (A1c 6.0)
3. Acute Postoperative conduction disturbance (junctional rhythm)
4. Obstructive sleep apnea with CPAP use
5. Acute Postoperative urinary retention
6. Acute surgical blood loss anemia-expected
7. Acute postop thrombocytopenia
8. Acute post op atelectasis
9. Acute postop hyponatremia
HPI: Joseph Anders is a 57-year-old male electively admitted for mitral valve repair.
Hospital course: Patient underwent complex/radical mitral valve repair (#32 mm band annuloplasty, 2 pairs of [place]-Jose cords to the anterior leaflet, 2 pairs of [place]-Jose cords to the posterior leaflet, triangular resection of the posterior leaflet at
the P2 scallop, free edge remodeling of the posterior leaflet, free edge remodeling at the A2 A3 scallop) on 04/19/[address] Salgado. Patient received no intraoperative blood products and returned to CVICU on Levophed, insulin, and Precedex. The
patient was extubated and Levophed weaned off later that afternoon. On arrival patient was noted to be a paced for underlying junctional rhythm in the 40s. Postoperative day #1, the [place]-Shadi catheter, bladder catheter, and arterial line were
removed and pleural chest tube was discontinued. Insulin infusion was maintained for hemoglobin A1c of 6.0. Patient required straight cath for 400 cc after Pagan was removed. Flomax 0.4mg daily was initiated. Patient utilized CPAP throughout stay
with setting of 4 cm. On postoperative day #2 the patient was again straight cathed for 520 cc clear urine. Chest tubes were removed. Insulin drip was discontinued and Sliding scale insulin initiated. Patient was noted to be in junctional rhythm
with rates in the 50s. Backup atrial pacing continued at 70 bpm. Postoperative day #3 patient was noted to be back in sinus rhythm and patient was urinating without difficulty. Platelets had a low point of 110,000 and increased to 1 26,000 on
postoperative day #4. Patient received 40 of IV Lasix on 04/23/2023.
Home medication changes:
Discharge Plan
-
Patient Disposition: Home (Routine Discharge)
Discharge Diagnosis/Procedures: mitral valve repair
Condition: Good
Diet: Diabetic, Carb Controlled
Activity: No strenuous activity
Driving Restrictions: Not until seen by your Dr
Bathing Restrictions: OK to Shower
Other Services: Cardiac Rehab
Specialty Instructions: Weigh Daily- Call MD for wt gain/loss 3 lbs overnight/5 lbs in 1 week
Referrals:
CT Transitional Care Nurse [Outside] - in one to two days
(
The Cardiothoracic Transitional Care Nurse will call you to set up a visit in 1-2 days.)
[facility]. Cardiac Rehab [Outside] - 05/29/23 1:00 pm
Tiffanie Ziegler NP [Specified Professional Personl] - 05/29/23 9:40 am
Nick Carlin MD [Family Provider] - in four to six weeks (Please make an appointment in four to six weeks. )
Jeremi Anthony MD [Active] - in one to two months
(Follows with Dr. [id number] with D[employer] [employer] or Dr. Richardson
Has ERNIE on AutoPap, PFTs and possible sniff test, CT chest-significantly elevated right hemidiaphragm)
Patrick Salgado MD [Active] - 05/18/23 1:45 pm
Prescriptions:
New
acetaminophen 325 mg Tablet
650 mg PO Q4HPRN PRN (Reason: mild pain,headache,temp >101F ) Qty: 0 0RF
cyclobenzaprine 10 mg Tablet
10 mg PO HS Qty: 30 0RF
metoprolol tartrate 25 mg Tablet
12.5 mg PO BID Qty: 60 0RF
Continued
aspirin 81 MG tablet,delayed release (DR/EC)
81 mg PO HS
L.acidoph, paracasei,B. lactis 1 EACH capsule
1 ea PO HS
multivitamin 1 EACH tablet
1 ea PO DAILY
ascorbic acid (vitamin C) [Vitamin C] 500 mg Tablet
500 mg PO HS
fiber Capsule
1 cap PO BID
omega 3-leo-sey-fish oil [Fish Oil] 1,200 (144-216) mg Capsule
1 cap PO BID
pravastatin 40 mg Tablet
40 mg PO DAILY
Discontinued
losartan 50 MG tablet
50 mg PO DAILY
amlodipine [Norvasc] 10 MG tablet
10 mg PO DAILY
hydrochlorothiazide 12.5 MG tablet
12.5 mg PO DAILY
vitamin E 100 unit Tablet
100 unit PO HS
Care Plan Goals
Care Plan Goals:
Problem: Readiness for enhanced knowledge related to diagnosis and treatment plan
Goal: Understand your diagnosis and treatment plan needs, including medications if applicable.
Instructions: Know your diagnosis, underlying causes and treatment plan options, including medications if applicable. Consult with your health care team to learn about your diagnosis and treatment plan, including medications if applicable.

Documented by User: AMARA Mcnally 04/24/23 11:41
Discharge Summary
Discharge Data
Date of Admission: 04/19/23
Date of Discharge: 04/24/23
Hospital Course
Primary care physician: Nick Carlin
Outpatient medical csr: Ricardo Avila
Inpatient consultants: [facility] Cardiology
Procedures:
1. Complex mitral valve repair
Primary Diagnosis:
1. Severe mitral valve regurgitation
Secondary Diagnoses:
1. Hypertension
2. Prediabetes (A1c 6.0)
3. Acute Postoperative conduction disturbance (junctional rhythm)
4. Obstructive sleep apnea
5. Acute Postoperative urinary retention
6. Acute surgical blood loss anemia-expected
7. Acute postop thrombocytopenia
8. Acute post op atelectasis
9. Acute postop hyponatremia
HPI: Joseph Anders is a 57-year-old male electively admitted for mitral valve repair.
Hospital course: Patient underwent complex/radical mitral valve repair (#32 mm band annuloplasty, 2 pairs of [place]-Jose cords to the anterior leaflet, 2 pairs of [place]-Jose cords to the posterior leaflet, triangular resection of the posterior leaflet at
the P2 scallop, free edge remodeling of the posterior leaflet, free edge remodeling at the A2 A3 scallop) on 04/19/[address] Salgado. Patient received no intraoperative blood products and returned to CVICU on Levophed, insulin, and Precedex. The
patient was extubated and Levophed weaned off later that afternoon. On arrival patient was noted to be a paced for underlying junctional rhythm in the 40s. Postoperative day #1, the [place]-Shadi catheter, bladder catheter, and arterial line were
removed and pleural chest tube was discontinued. Insulin infusion was maintained for hemoglobin A1c of 6.0. Patient required straight cath for 400 cc after Pagan was removed. Flomax 0.4mg daily was initiated. Patient utilized CPAP throughout stay
with setting of 4 cm. On postoperative day #2 the patient was again straight cathed for 520 cc clear urine. Chest tubes were removed. Insulin drip was discontinued and Sliding scale insulin initiated. Patient was noted to be in junctional rhythm
with rates in the 50s. Backup atrial pacing continued at 70 bpm. Postoperative day #3 patient was noted to be back in sinus rhythm and patient was urinating without difficulty. Platelets had a low point of 110,000 and increased to 1 26,000 on
postoperative day #4. Patient received 40 of IV Lasix on 04/23/2023 and 2View cxr was stable. On Post-op day #5, patient was started on a low dose beta katelynn and a repeat echocardiogram was completed. He was deemed stable for discharge and
prescriptions were sent to his preferred pharmacy.
Home medication changes:
Started:
Acetaminophen 650 every 6 hours as needed for mild to moderate pain
Metoprolol Tartate 12.5mg every 12 hours for blood pressure and heart rate control
Flexeril 10mg HS as needed for muscle spasms
Stopped:
see below
DO NOT RESTART BLOOD PRESSURE MEDICATIONS UNTIL INSTRUCTED BY A DOCTOR
Discharge Plan
-
Patient Disposition: Home (Routine Discharge)
Discharge Diagnosis/Procedures: mitral valve repair
Condition: Good
Diet: Diabetic, Carb Controlled
Activity: No strenuous activity
Driving Restrictions: Not until seen by your Dr
Bathing Restrictions: OK to Shower
Other Services: Cardiac Rehab
Specialty Instructions: Weigh Daily- Call MD for wt gain/loss 3 lbs overnight/5 lbs in 1 week
Referrals:
CT Transitional Care Nurse [Outside] - in one to two days
(
The Cardiothoracic Transitional Care Nurse will call you to set up a visit in 1-2 days.)
[facility] Cardiac Rehab [Outside] - 05/29/23 1:00 pm
Tiffanie Ziegler NP [Specified Professional Personl] - 05/29/23 9:40 am
Nick Carlin MD [Family Provider] - in four to six weeks (Please make an appointment in four to six weeks. )
Jeremi Anthony MD [Active] - in one to two months
(Follows with Dr. 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 Richardson
Has ERNIE on AutoPap, PFTs and possible sniff test, CT chest-significantly elevated right hemidiaphragm)
Patrick Salgado MD [Active] - 05/18/23 1:45 pm
Prescriptions:
New
acetaminophen 325 mg Tablet
650 mg PO Q4HPRN PRN (Reason: mild pain,headache,temp >101F ) Qty: 0 0RF
cyclobenzaprine 10 mg Tablet
10 mg PO HS Qty: 30 0RF
metoprolol tartrate 25 mg Tablet
12.5 mg PO BID Qty: 60 0RF
Continued
aspirin 81 MG tablet,delayed release (DR/EC)
81 mg PO HS
L.acidoph, paracasei,B. lactis 1 EACH capsule
1 ea PO HS
multivitamin 1 EACH tablet
1 ea PO DAILY
ascorbic acid (vitamin C) [Vitamin C] 500 mg Tablet
500 mg PO HS
fiber Capsule
1 cap PO BID
omega 2-pmg-ztv-fish oil [Fish Oil] 1,200 (144-216) mg Capsule
1 cap PO BID
pravastatin 40 mg Tablet
40 mg PO DAILY
Discontinued
losartan 50 MG tablet
50 mg PO DAILY
amlodipine [Norvasc] 10 MG tablet
10 mg PO DAILY
hydrochlorothiazide 12.5 MG tablet
12.5 mg PO DAILY
vitamin E 100 unit Tablet
100 unit PO HS
Care Plan Goals
Care Plan Goals:
Problem: Readiness for enhanced knowledge related to diagnosis and treatment plan
Goal: Understand your diagnosis and treatment plan needs, including medications if applicable.
Instructions: Know your diagnosis, underlying causes and treatment plan options, including medications if applicable. Consult with your health care team to learn about your diagnosis and treatment plan, including medications if applicable.
--- NOTE | 2023-04-23 12:45 | PTCARENOTE ---
Patient assessment unchanged. Vital signs remain stable. Pt completed 2-view CXR. 40mg IV lasix given. Pt voiding frequently. Ambulating in halls often. Family bedside.
[2023-04-23] MEDS: SKELAXIN 800 MG PO (14:06)
--- NOTE | 2023-04-23 15:04 | W.PN.CD ---
Today's Communication / Plan
-
remains in sinus without pacing
trend tele
Impression / Plan
-
Impression/Plan: 67 y/o male with HTN, HLD and severe, eccentric degenerative mitral regurgitation admitted for elective surgical mitral valve repair, now with SSS/Sinus arrest.
#Sinus node dysfunction
-Early after MV repair.
-Hopefully he will not need a pacemaker.
-Avoid negative chronotropic meds (BB, amio, etc).
-current NSR without pacing
#MV repair for severe MR
-s/p complex/radical mitral valve repair (32 mm band annuloplasty, 2 pairs of [place]-Jose cords to the anterior leaflet, 2 pairs of [place]-Jose cords to the posterior leaflet, triangular resection of the posterior leaflet at the P2 scallop, free edge
remodeling of the posterior leaflet, free edge remodeling at the A2 A3 scallop) by Dr. Salgado on 04/19/2023.
-Routine post-operative management per CT surgery.
#Post op anemia
-Acute, procedural blood loss.
-Stabilized
#Non-obstructive CAD
-Chronic, stable.
-Seen on cath 03/2023: Max lesion 50-60% ostial-prox LCx.
-He would benefit from high dose, high potency statin. Consider changing pravastatin to atorvastatin 40 mg daily.
#HTN
-Chronic, stable.
-As BP recovers, restart home anti-hypertensives, starting with losartan.
-avoid AV dunia agents
#Mixed hyperlipidemia
-Chronic, stable.
-Currently on pravastatin 40 mg daily.
-Given presence of ASCVD, he may benefit from high dose, high potency statin.
#Elevated right hemidiaphragm (see preop)
-Appears chronic, stable. Seen on CXR from 02/01/2023.
-Etiology unknown.
-Consider fluoroscopic sniff test to evaluate for hemidiaphragm paralysis.
Subjective/Interval History:
Sitting in chair and walking hallway without complaint.
DATA:
CTA Chest/Abdomen/Pelvis, 04/13/2023:
IMPRESSION:
Thoracic and abdominal aorta within the limits of normal in caliber, homogeneous in appearance with some calcific atherosclerotic changes. No findings to suggest thoracic or abdominal aortic dissection.
Retroaortic left renal vein, congenital variants of normal.
Coronary artery calcifications.
Elevated right hemidiaphragm.
Mild thickening of the left adrenal gland.
Mildly enlarged prostate.
Cardiac Catheterization, 04/04/2023:
LEFT VENTRICULOGRAPHY: The left ventricle appears to be at upper limit of normal in size.� There is mild regurgitation degree of which is difficult to quantify angiographically.� The overall systolic function is normal with a visually estimated EF
55-60%
CORONARY ANGIOGRAPHY
Dominance: Right
Left Main: 10-20% distal tapering
LAD: Mild calcification of the proximal and mid LAD with a focal 30% mid LAD lesion spanning the takeoff of the small second diagonal branch.
Circumflex: 50-60% ostial/proximal stenosis and a medium to large ramus intermedius branch.� The circumflex system has mild luminal irregularities.
RCA: Large dominant vessel with mild luminal irregularities
SARAH, 03/21/2023:
CONCLUSIONS
�Normal left ventricular systolic function. Left ventricular ejection fraction
�is 60%.
�
�Severe mitral regurgitation. Prolapse of the posterior (P2) mitral leaflet was
�present.
�
�No significant change since the prior study of Mar 10.
Physical Exam
Vital Signs/Labs
Vital Signs
Temp Pulse Resp BP Pulse Ox
98.2 F 83 16 132/67 95
04/23/23 11:49 04/23/23 14:30 04/23/23 11:49 04/23/23 11:49 04/23/23 14:56
04/22/23 04/23/23 04/24/23
06:59 06:59 06:59
Actual Weight 97.3 kg 95.9 kg
04/23/23 04:22
04/23/23 04:22
PT 17.8 Sec (11.4-14.6) H 04/19/23 12:36
INR 1.45 04/19/23 12:36
APTT 29.0 Sec (23.4-35.0) 04/19/23 12:36
Magnesium 2.2 mg/dl (1.6-2.3) 04/23/23 04:22
Physical Exam
Constitutional: No acute distress and Comfortable
EENT: Moist mucous membranes
Cardiovascular: Rhythm & rate is regular, Pedal edema is absent, JVD pressure is normal and Systolic murmur absent
Respiratory: Respiratory effort normal, Lungs clear to auscul. and Wheeze Absent
Neuro/Psych: AO x 3
Data Reviewed
-
Date of Service: April 23, 2023
EKG: Other (Tele: SR 70s)
Labs: Labs Reviewed by me
[2023-04-23] MEDS: SILVADENE 1 APPLIC TOPICAL (16:50)
--- NOTE | 2023-04-23 17:08 | PTCARENOTE ---
Patient OOB for dinner. Denies pain. Vital signs stable. NSR with monomorphic PVCs. Assessment unchanged.
[2023-04-23] MEDS: TYLENOL 650 MG PO (20:05)
--- NOTE | 2023-04-23 20:20 | PTCARENOTE ---
Assumed care of patient at 1900. Patient found in bed at time of assessment. Patient is AOx4, follows commands appropriately, moves all extremities. Lung sounds are diminished at the bases, patient is on RA saO2 at 93%. Heart sounds have a regular
rate and rhythm, patient is SR with PVCs on the monitor, patient has A+V wires with AAI settings 50/10. Patient has normal palpable pulses and +1 generalized anasarca. Patient has active bs throughout all four quadrants and is continent of
bowel/bladder. Patient is voiding clear yellow urine. Patient has a sternal incision approximated with surgical adhesive UDAY. There is an ABD dressing over CT wounds that is CDI. Patient has a skin tear of RUQ that is GAMING PIT BOSS. There is a R AC 18G PIV
available for intermittent infusion. VSS. Patient c/o mild back pain tylenol administered. Patient is stable.
[2023-04-23] MEDS: FLEXERIL 10 MG PO (22:47)
[2023-04-24] VITALS (8 sets, daily range): BP systolic 107–128; BP diastolic 70–98; PULSE 93; O2SAT 98–100; BMI 29.3
--- NOTE | 2023-04-24 00:12 | PTCARENOTE ---
Patient reassessed. VSS. Patient remains NSR with PVCs on the monitor. No c/o pain at this time. Patient is stable.
--- NOTE | 2023-04-24 04:52 | PTCARENOTE ---
Patient reassessed. VSS. AM labs obtained. Patient has no complaints at this time.
--- NOTE | 2023-04-24 05:59 | W.PN.CT ---
Today's Communication / Plan
-
pod #5
-no issues overnight
-regained nsr 70s on 04/22, PVCs
-cont to hold BB and Amio per cards 2/2 previous junctional rhythm - now NSR
-voiding
-encourage IS, OOB, ambulate
-dispo planning
Assessment / Plan
-
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
resection of the posterior leaflet at the P2 scallop, free edge remodeling of the posterior leaflet, free edge remodeling at the A2 A3 scallop) by Dr. Salgado on 04/19/23, POD #5
Post op SARAH: �Normal biventricular systolic function with an LVEF of 60% by visual inspection and normal wall-thickness and size.� Severe mitral regurgitation resulting from P2 flail.� Both leaflets are enlarged.� Minimal valvular calcification.�
The tricuspid and aortic valves are grossly normal in function.� The thoracic aorta is normal in size and mostly free of atheromatous disease except for a small, discrete lesion in the arch.
-HTN
-HLD
-ERNIE on CPAP
-Obesity with BMI 29
-Elevated R hemidiaphragm
-Hyperglycemia (A1c 6%)
-Acute postop junctional rhythm/sinus node dysfunction
-Acute post op blood loss anemia
-Acute postop thrombocytopenia
-Acute post op atelectasis
-Acute postop urinary retention- straight cathed x2, started on Flomax- resolved
-Acute postop hyponatremia
Discussed patient care with: Care Team
Subjective
Procedure
S/P Complex/radical mitral valve repair (32 mm band annuloplasty, 2 pairs of [place]-Jose cords to the anterior leaflet, 2 pairs of [place]-Jose cords to the posterior leaflet, triangular resection of the posterior leaflet at the P2 scallop, free edge
remodeling of the posterior leaflet, free edge remodeling at the A2 A3 scallop) on 04/19/[address] Salgado
-
Date of Service: April 24, 2023
Objective Data
-
Lab Results
04/23/23 04:22
04/23/23 04:22
PT 17.8 Sec (11.4-14.6) H 04/19/23 12:36
INR 1.45 04/19/23 12:36
APTT 29.0 Sec (23.4-35.0) 04/19/23 12:36
Vital Signs
Vital Signs
Temp Pulse Resp BP Pulse Ox
98.3 F 84 20 138/71 93
04/23/23 19:00 04/23/23 20:08 04/23/23 19:00 04/23/23 20:08 04/23/23 20:10
CT Intake/Output/Weight
04/23/23 04/23/23 04/24/23
06:59 18:59 06:59
Intake Total 960 / 1210 480 / 960 480 / 960
Balance 960 / 1210 480 / 960 480 / 960
SaO2: 93
Physical Exam
-
General: Awake, Oriented and AOx3
Cardiovascular: Regular rate & rhythm
Respiratory: Clear and Equal
Sternum: Stable
Incision: Clean, Dry and Intact
Extremities: Edema +1
Data Reviewed
-
Lab Results: Results Reviewed
Medications: Active Meds Reviewed
Chest X-Ray: Image Reviewed
Vital Signs / Labs
-
Vital Signs and Labs:
Temp Pulse Resp BP Pulse Ox
98.3 F 73 20 107/75 93
04/24/23 04:42 04/24/23 04:42 04/24/23 04:42 04/24/23 04:42 04/24/23 04:42
04/23/23 04:22
04/23/23 04:22
04/23/23
09:16
POC Glucose 131 H
--- NOTE | 2023-04-24 07:00 | PTCARENOTE ---
Bedside walking rounds report received. Patient seen on rounds oob in chair and ambulating ad franco hallway. A backup DDI of 50/10. Temp epicardial v wire off. NSR with periods of bigeminy/pvc's/couplets. Denies pain. BP stable. Plan is to do 12
steps then do 2 d echo later this am and see how BB metropolol po is tolerated. Room air.
[2023-04-24] MEDS: LASIX 40 MG IV (08:46)
[2023-04-24] MEDS: KCL 20 MEQ PO (08:46)
[2023-04-24] MEDS: LOW STRENGTH ASPIRIN 81 MG PO (08:46)
[2023-04-24] MEDS: SENOKOT-S 1 TABLET PO (08:46)
[2023-04-24] MEDS: PRAVACHOL 40 MG PO (08:46)
[2023-04-24] MEDS: MAGNESIUM OXIDE 500 MG PO (08:46)
[2023-04-24] MEDS: FLOMAX 0.400000000000000022 MG PO (08:46)
[2023-04-24] MEDS: PROTONIX 40 MG PO (08:46)
[2023-04-24] MEDS: LOPRESSOR 12.5 MG PO (08:46)
[2023-04-24] MEDS: SILVADENE 1 APPLIC TOPICAL (08:47)
--- NOTE | 2023-04-24 09:39 | W.PN.CD ---
Today's Communication / Plan
-
OK for beta katelynn
Impression / Plan
-
Impression/Plan: 67 y/o male with HTN, HLD and severe, eccentric degenerative mitral regurgitation admitted for elective surgical mitral valve repair, now with SSS/Sinus arrest.
Resolved sinus node dysfunction noted kera after MV repair.
- Ok for beta katelynn
S/p MV repair for severe MR
-s/p complex/radical mitral valve repair (32 mm band annuloplasty, 2 pairs of [place]-Jose cords to the anterior leaflet, 2 pairs of [place]-Jose cords to the posterior leaflet, triangular resection of the posterior leaflet at the P2 scallop, free edge
remodeling of the posterior leaflet, free edge remodeling at the A2 A3 scallop) by Dr. Salgado on 04/19/2023.
Post op anemia, stable
Non-obstructive CAD, cath 03/2023: Max lesion 50-60% ostial-prox LCx.
-He would benefit from high dose, high potency statin.
- Consider changing pravastatin to atorvastatin 40 mg daily.
HTN, stable
Mixed hyperlipidemia => goal LDL less than 100. As above
Elevated right hemidiaphragm (see preop)
-Appears chronic, stable. Seen on CXR from 02/01/2023.
-Etiology unknown.
-Consider fluoroscopic sniff test to evaluate for hemidiaphragm paralysis.
Subjective/Interval History:
Doing well. Eager for home
DATA:
CTA Chest/Abdomen/Pelvis, 04/13/2023:
IMPRESSION:
Thoracic and abdominal aorta within the limits of normal in caliber, homogeneous in appearance with some calcific atherosclerotic changes. No findings to suggest thoracic or abdominal aortic dissection.
Retroaortic left renal vein, congenital variants of normal.
Coronary artery calcifications.
Elevated right hemidiaphragm.
Mild thickening of the left adrenal gland.
Mildly enlarged prostate.
Cardiac Catheterization, 04/04/2023:
LEFT VENTRICULOGRAPHY: The left ventricle appears to be at upper limit of normal in size.� There is mild regurgitation degree of which is difficult to quantify angiographically.� The overall systolic function is normal with a visually estimated EF
55-60%
CORONARY ANGIOGRAPHY
Dominance: Right
Left Main: 10-20% distal tapering
LAD: Mild calcification of the proximal and mid LAD with a focal 30% mid LAD lesion spanning the takeoff of the small second diagonal branch.
Circumflex: 50-60% ostial/proximal stenosis and a medium to large ramus intermedius branch.� The circumflex system has mild luminal irregularities.
RCA: Large dominant vessel with mild luminal irregularities
SARAH, 03/21/2023:
CONCLUSIONS
�Normal left ventricular systolic function. Left ventricular ejection fraction
�is 60%.
�
�Severe mitral regurgitation. Prolapse of the posterior (P2) mitral leaflet was
�present.
�
�No significant change since the prior study of Mar 10.
Physical Exam
Vital Signs/Labs
Vital Signs
Temp Pulse Resp BP Pulse Ox
98.4 F 89 18 128/98 95
04/24/23 08:44 04/24/23 08:44 04/24/23 08:44 04/24/23 08:44 04/24/23 08:44
04/23/23 04/24/23 04/25/23
06:59 06:59 06:59
Actual Weight 95.9 kg 95.1 kg
04/23/23 04:22
04/23/23 04:22
PT 17.8 Sec (11.4-14.6) H 04/19/23 12:36
INR 1.45 04/19/23 12:36
APTT 29.0 Sec (23.4-35.0) 04/19/23 12:36
Magnesium 2.2 mg/dl (1.6-2.3) 04/23/23 04:22
Physical Exam
Constitutional: No acute distress
EENT: Anicteric
Cardiovascular: Rhythm & rate is regular
Respiratory: Respiratory effort normal and Lungs clear to auscul. (decreased at both bases)
GI: Soft and Distention absent
Neuro/Psych: AO x 3
Data Reviewed
-
Date of Service: April 24, 2023
--- NOTE | 2023-04-24 12:00 | PTCARENOTE ---
Pat is clear to be dc home per ct surgery ater 2 d echo resulted.
--- NOTE | 2023-04-24 12:00 | CM ---
Reviewed chart. Met with Mr. Anders to review discharge plans. He states he is feeling well and maybe able to go home soon. He states he ambulated in the hallway today and did the stairs. Prior to admission he resides with his spouse in a two story
home with two steps to enter. He states he has a full flight of steps to get to bedroom/full bathroom. He has a powder room on the first floor. He has a CPAP Machine at home and no other DME. We reviewed a home visit by the Cardiothoracic
Transitional Care Nurse. He is agreeable to a home visit. Medical work-up in progress. The discharge plan is to return home with his spouse and a home visit by the Cardiothoracic Transitional Care Nurse when medically stable.
--- NOTE | 2023-04-24 13:30 | PTCARENOTE ---
Temp A/V wires sutures dc and A/V wires ct and retracted by Yasmeen Trejo PA-C. Open to air. Patient showered.
== END 2023-04-24 16:00 | disposition home or self-care (01) | DRG 219 ==
LOC: CVICU 05:04
PROVIDERS: Clinical Nurse Specialist Acute Care; Nurse Practitioner; Physician Assistant Surgical; ADMITTING PHYSICIAN Thoracic Surgery (Cardiothoracic Vascular Surgery); CONSULT PHYSICIAN Internal Medicine Critical Care Medicine; FAMILY PHYSICIAN Family Medicine
PROC: 02UG0JZ Supplement Mitral Valve with Synthetic Substitute, Open Approach (ICD-10-PCS; 2023-04-19)
PROC: 5A1221Z Performance of Cardiac Output, Continuous (ICD-10-PCS; 2023-04-19)
PROC: 0BH17EZ Insertion of Endotracheal Airway into Trachea, Via Natural or Artificial Opening (ICD-10-PCS; 2023-04-19)
PROC: B24BZZ4 Ultrasonography of Heart with Aorta, Transesophageal (ICD-10-PCS; 2023-04-19)
PROC: 02BG0ZZ Excision of Mitral Valve, Open Approach (ICD-10-PCS; 2023-04-19)
DX: I34.0 Nonrheumatic mitral (valve) insufficiency (principal); I51.1 Rupture of chordae tendineae, not elsewhere classified; D62 Acute posthemorrhagic anemia; E87.20 Acidosis, unspecified; J98.11 Atelectasis; E87.1 Hypo-osmolality and hyponatremia; I10 Essential (primary) hypertension; E78.5 Hyperlipidemia, unspecified; S83.206A Unspecified tear of unspecified meniscus, current injury, right knee, initial encounter; G47.33 Obstructive sleep apnea (adult) (pediatric); E66.9 Obesity, unspecified; Z68.29 Body mass index [BMI] 29.0-29.9, adult; R33.9 Retention of urine, unspecified; E78.2 Mixed hyperlipidemia; D69.59 Other secondary thrombocytopenia; I25.10 Atherosclerotic heart disease of native coronary artery without angina pectoris; I34.1 Nonrheumatic mitral (valve) prolapse
CPT/HCPCS: 36415; 71045; 71046; 80048; 80053; 81003; 82248; 82330; 82565; 82805; 82947; 82962; 83036; 83735; 84132; 84302; 84520; 85014; 85018; 85025; 85027; 85049; 85610; 85730; 86850; 86900; 86901; 86920; 87070; 93005; 93306; 93312; 93320; 93325; 93880; 94002; 94640; P9045; P9047

== ENCOUNTER 2023-05-16 11:12 | Inpatient (IN) | payer MEDICARE, OTHER, SELFPAY ==
[2023-05-15] VITALS (8 sets, daily range): BP systolic 139–159; BP diastolic 90–99
[2023-05-15 12:51] LABS: % Eosinophils 7.2 % (0-6); % Immature Granulocytes 0.3 % (0-0.5); % Lymphocytes 29.1 % (20.5-51.1); % Monocytes 10.2 % (1.7-9.3); % Neutrophils 52.2 % (42.2-75.2); Absolute Basophils 0.1 10^3/uL (0-0.2); Absolute Eosinophils 0.5 10^3/uL (0-0.7); Absolute Monocytes 0.7 10^3/uL (0.1-0.6); Absolute Neutrophils 3.6 10^3/uL (1.4-6.5); Hematocrit 38.6 % (39.0-52.0); Hemoglobin 13.3 g/dL (13.0-18.0); Mean Corp Hgb Conc. 34.5 g/dL (33.0-37.0); Mean Corpuscular Hgb 30.7 pg (27.0-31.0); Mean Corpuscular Volume 89.1 fL (80.0-94.0); Mean Platelet Volume 9.4 fL (7.4-10.4); Nucleated Red Blood Cells % 0 % (-); Platelet Count 220 10^3/uL (130-400); Red Blood Cell Count 4.33 10^6/uL (4.70-6.10); Red Cell Dist. Width 12.3 % (11.5-14.5)
[2023-05-15 13:10] LABS: ALT (SGPT) 33 U/L (0-50); AST (SGOT) 32 U/L (17-59); Albumin 4.9 g/dl (3.5-5.0); Alkaline Phosphatase 125 U/L (38-126); Blood Urea Nitrogen 12 mg/dl (9-20); Calcium 10.2 mg/dl (8.4-10.2); Carbon Dioxide 28 mmol/L (22-30); Chloride 104 mmol/L (98-107); Glucose 113 mg/dl (70-99); Potassium 4.2 mmol/L (3.5-5.1); Sodium 138 mmol/L (135-145); Total Bilirubin 0.6 mg/dl (0.2-1.3); Total Protein 8.1 g/dl (6.3-8.2); eGFR > 60.00
--- NOTE | 2023-05-15 15:33 | ED.GENMED ---
History of Present Illness
General
Chief Complaint: Visual Problem
Source: patient and spouse
Time Seen by Provider: 05/15/23 14:58
Travel History
Have you had any contact with someone who has COVID-19?: No
Do you have any symptoms of coronavirus? Fever > 100 degrees, chills, cough, shortness of breath, sore throat, loss of taste or smell, muscle aches, or headache?: No
History of Present Illness
History of Present Illness:
This patient is a very pleasant 67-year-old male who just had a mitral valve replacement discharged May 09 and has been recovering well at home. He checks his blood pressure regularly and notes that it has been slightly elevated,
preoperatively it was extremely well-controlled. He is very compliant with his medications which includes aspirin but not Plavix. Last evening, while looking at his phone he noticed that there was a 'smudge' in his central visual field, unchanged
when covering either eye. This has persisted, is constant without change. He denies associated symptoms such as double vision, photophobia, eye pain, fever, chills, nausea, vomiting, headache, dizziness, focal weakness, vertigo, numbness,
tingling, etc.
Past History
Past History
ED Past Medical History: Other (Hypertension, hyperlipidemia, nonobstructive CAD)
ED Past Surgical History: Cardiac (Mitral valve replaced)
Social History
Tobacco: Non-smoker
Alcohol: None
Drug: None
Personal:
Living: with family
Phy Exam
Physical Exam
Physical Exam:
GENERAL: Alert , in no apparent distress
EYE: pupils equal and reactive, EOMI, no nystagmus, funduscopic exam grossly normal
NECK: Supple, no significant adenopathy.
ENT: o/p clr, mmm.
CARDIAC: Regular rate and rhythm .
LUNGS: Clear breath sounds bilaterally, no acute respiratory distress, no wheezes/rales/rhonchi
ABDOMEN: Soft, without focal tenderness, no r/g, no cvat
NEUROLOGICAL: Alert and oriented, no focal neuro deficits, NIH equal to 0, visual jarrett intact, visual acuity as noted in RN note, [id number] normal, cranial nerves II through XII intact, motor 5 out of 5, sensory intact
SKIN: Warm and dry, skin intact.
MUSCULOSKELETAL: No edema, well perfused.
PSYCH: Normal and appropriate interaction.
Course
Orders/Labs/Results
Orders:
Orders
05/15/23 12:11
Electrocardiogram (*1) Urgent
Reason for Study: Chest Pain
EKG- Treatment ONCE
05/15/23 12:31
CT Head W/o Iv Contrast Urgent
Comment:
Reason For Exam: visual changs
05/15/23 12:40
Complete Blood Count/With Diff Urgent
Comprehensive Metabolic Panel Urgent
05/15/23 Dinner
Regular
At Your Request: Full Participation
Does patient need a safe tray?: No
05/15/23 16:32
Admit/Transfer Patient As Directed
Co-Sign Provider:
Level of Care: Observation services
Assign to:: Telemetry
Physician / Group: hayley
Diagnosis: cva
Reason for Telemetry: CVA/TIA
Date to Stop Telemetry: 05/18/23
Time to Stop Telemetry: 11:00
Code Status As Directed
Resuscitation Status: Full Code
05/15/23 16:40
Clopidogrel Bisulfate [Plavix] 300 mg PO NOW STA
05/15/23 19:38
Acetaminophen [Tylenol/Feverall] 650 mg RECTAL Q4HPRN PRN
Acetaminophen [Tylenol] 650 mg PO Q4HPRN PRN
Atorvastatin [Lipitor] 40 mg PO QPM
05/15/23 19:38
Activity As Directed
Activity Level: As Tolerated
NIH Stroke Scale As Directed
Directions: Per protocol
Comment: every shift and with any change in condition or mental status
Neurological Checks As Directed
Frequency: q4h
Additional Instructions:: q4h x 24h upon admission to the floor, then qshift & with any change in condition
and mental status
Patient Education As Directed
Type: Stroke education packet
Comment: provide to patient and family
Pneumatic Compression Sleeves As Directed
Type: Knee high
Vital Signs As Directed
Frequency: Per unit guidelines
Cpap [RESP] Routine
Patient to use own unit?: Yes
DX Deep Vein Thrombosis Video Routine
05/15/23 20:00
Calcium Polycarbophil [Fibercon] 625 mg PO BID
Metoprolol [Lopressor] 25 mg PO BID
05/15/23 22:00
Ascorbic Acid [Vitamin C] 500 mg PO HS
Cyclobenzaprine HCl [Flexeril] 10 mg PO HS
Lactobac/Bifidobac [Visbiome] 1 cap PO HS
05/15/23 22:07
Consult Notification Routine
Specialty to Notify: Neurology
Date consulting provider notified: 05/16/23
Time consulting provider notified: 07:12
Notified:: Provider
NEUROLOGY CONSULT Routine
Consulting Provider: Moris Muñoz
Was physician already notified: No
Reason for consult: cva
05/16/23
DX DVT Prevention Inpt Video Routine
05/16/23 06:02
Basic Metabolic Panel IN AM
Cardiovascular Evaluation IN AM
Complete Blood Count/No Diff IN AM
05/16/23 06:08
Consult Cardiology [CARDIOLOGY CONSULT] Routine
Consulting Provider: Lakisha De La Cruz
Was physician already notified: Yes
Reason for consult: Stroke
05/16/23 08:00
Amlodipine [Norvasc] 5 mg PO DAILY
Aspirin Chewable [Low Strength Aspirin] 81 mg PO DAILY
Clopidogrel Bisulfate [Plavix] 75 mg PO DAILY
Multivitamin [Theragran] 1 tablet PO DAILY
05/16/23 08:01
Echo Follow up Study W Dop Routine
Reason for Study: CVA post MVRepair, LV thrombus?
05/16/23 08:22
Ot Eval And Treat Routine
Treatment: new occipital stroke
Pt Eval And Treat Routine
Treatment: new occipital stroke
Activity Level: Out of Bed-Early Mobility
Speech Therapy Eval & Treat Routine
Treatment: new occipital stroke
05/16/23 12:38
MA [place] Wo Routine
Reason For Exam: stroke/TIA
Recent pill cam endoscopy?: No
05/16/23 18:00
Atorvastatin [Lipitor] 80 mg PO QPM
05/16/23 19:38
MA Neck With Contrast Routine
Reason For Exam: stroke/TIA
Recent pill cam endoscopy?: No
MR Brain Without Contrast Routine
Reason For Exam: stroke/TIA
Recent pill cam endoscopy?: No
05/18/23 11:00
DC Protocol for Telemetry ONCE
Abnormal Lab Results
05/15/23 05/16/23
12:40 06:02
RBC 4.33 L 10^6/uL 4.36 L 10^6/uL
(4.70-6.10) (4.70-6.10)
Hct 38.6 L % 38.4 L %
(39.0-52.0) (39.0-52.0)
Absolute Monos (auto) 0.7 H 10^3/uL
(0.1-0.6)
Monocytes % 10.2 H %
(1.7-9.3)
Eosinophils % 7.2 H %
(0-6)
Creatinine 0.6 L mg/dL
(0.7-1.3)
Glucose 113 H mg/dl 106 H mg/dl
(70-99) (70-99)
Triglycerides 247 H mg/dl
(10-149)
Total Cholesterol 217 H mg/dl
(50-199)
VLDL Cholesterol, Calc 49 H mg/dl
(0-30)
05/16/23 06:02
05/16/23 06:02
Vital Signs
Initial and Last Documented VS:
Initial Vital Signs
Temp Pulse Resp BP Pulse Ox
98.3 F 89 16 140/98 96
05/15/23 12:24 05/15/23 12:24 05/15/23 12:24 05/15/23 12:24 05/15/23 12:24
Last Documented Vital Signs
Temp Pulse Resp BP Pulse Ox
98.1 F 93 18 117/83 94
05/17/23 11:40 05/17/23 11:40 05/17/23 11:40 05/17/23 11:40 05/17/23 11:40
*Critical Care Note
Total Time (30-74mins, 75-104mins- exclusive of procedures): Not Applicable
Update Note
Update Note:
Patient presents to the Emergency Department with ___visual changes
Number and Complexity of Problems Addressed at the Encounter
� Chronic conditions affecting care:
� Acute Exacerbation and/or Progression of Chronic Illness:
� Differential Diagnosis includes: But not limited to CVA/TIA, macular disease, migraine aura, etc.
Amount and/or Complexity of Data to be Reviewed and Analyzed
� I performed an independent evaluation of and my interpretation is:
EKG: Read by me, normal sinus rhythm, incomplete right bundle, no acute ischemia
CT: Read by radiology, probable subacute small infarct in the left occipital lobe
Xrays:
Laboratory Studies: Generally unremarkable
Other:
� Review of other/old records reveals: 227 patient's discharge summary reviewed given his mitral valve replacement. Medication list reviewed
� Clinical information was obtained by an independent historian: who is at bedside
� Prescriptions/Medications Considered but not given:
� Further testing considered but not performed:
Risk of Complications and/or Morbidity or Mortality of Patient Management
� Social determinants of health affecting care:
� Discussion with other providers (PCP, Hospitalists, Consultants, etc):
� Escalation of care including admission/observation vs risk of discharge considered: Case discussed with ophthalmology here dr [place], aware of hx,phyus, ct etc. agrees with plan for admission for CVA workup, suspects
paracentral scotoma, no further rec at this time. Pt without any other neuro sxs, obviously not a tnk caniddate given nih =0.
ED Attending Note
-
Portions of this chart may have been created with voice recognition software.� Occasional wrong word or��sound alike� substitutions may have occurred due to the inherent limitations of voice recognition software.
Discharge Plan
Departure
Patient Disposition: Admit
Date of Disposition: 05/15/23
Time of Disposition: 15:38
Admit to: Telemetry
Presentation/result/management discussed w/ accepting MD/DO: Hospitalist
Condition: Fair
Discharge Problem:
Acute CVA (cerebrovascular accident)
Interventions
Interventions:
*Risk Screen - Suicide Last Done: 05/15/23 12:24
*General Assessment Last Done: 05/15/23 12:24
*Neglect/Abuse Screening Last Done: 05/15/23 12:24
ED- Fall Risk Assessment Last Done: 05/15/23 15:44
*ED COVID-19 Vaccine History Last Done: 05/15/23 15:21
*Nursing Disposition Last Done: 05/16/23 08:07
ED- Neurological Assessment Last Done: 05/16/23 00:00
ED-EENT Assessment Last Done: 05/15/23 15:33
ED Swallowing Screen Last Done: 05/15/23 16:03
Discharge Date and Time
Discharge Date/Time: 05/16/23 08:07
--- NOTE | 2023-05-15 16:35 | HPS.HSE ---
Family Physician
-
Family Physician: Nick Carlin
Chief Complaint
-
central vision loss
History of Present Illness
67-year-old male past medical history of severe mitral regurgitation status post mitral valve replacement on 04/19, nonobstructive CAD, hypertension, hyperlipidemia, prediabetes, obstructive sleep apnea on CPAP, presenting with visual difficulty.
Yesterday afternoon while looking at his phone he noticed that there was a smudge in his central visual field unchanged after covering each eye. He takes Plavix. He denies any numbness or tingling, focal weakness, gait dysfunction, headache or
double vision. He denies any history of stroke.
He denies any smoking history. Drinks alcohol very rarely.
Patient underwent mitral repair 04/19. He developed sinus node dysfunction afterwards but pacemaker was not needed. No history of atrial fibrillation.
Denies any chest pain or shortness of breath.
Medical History
Past Medical History
Past Medical History: Reports Other (severe mitral regurgitation status post mitral valve replacement on 04/19, nonobstructive CAD, hypertension, hyperlipidemia, prediabetes, obstructive sleep apnea on CPAP,)
Past Surgical History: Reports Other (mitral regurgitation status post mitral valve replacement on 04/19)
Social History
Tobacco: Non-smoker
Alcohol: Occasional
Drug: None
Family History
Family History: Not pertinent
Allergies / Home Medications
Allergies reflects when Allergies were last updated in [facility].
Home Medications with original date entered in [facility]
Allergy/Medication List:
Allergies
Allergy/AdvReac Type Severity Reaction Status Date / Time
No Known Allergies Allergy Verified 04/19/23 05:17
Home Medications
L.acidoph, paracasei,B. lactis 10 billion cell capsule 1 ea PO HS Supplement 03/04/20
aspirin 81 mg tablet,delayed release 81 mg PO HS Blood Clot Prevention/Tx 03/04/20
multivitamin 1 ea PO DAILY Supplement 12/28/20
ascorbic acid (vitamin C) 500 mg tablet (Vitamin C) 500 mg PO HS Supplement 03/21/23
fiber 1 cap PO BID Supplement 03/21/23
omega 8-qat-qtl-fish oil 1,200 mg (144 mg-216 mg) capsule (Fish Oil) 1 cap PO BID Supplement 03/21/23
pravastatin 40 mg tablet 40 mg PO DAILY High Cholesterol 04/10/23
acetaminophen 325 mg tablet 650 mg PO Q4HPRN PRN mild pain,headache,temp >101F #0 tabs 04/22/23
cyclobenzaprine 10 mg tablet 10 mg PO HS Muscle spasms #30 tabs 04/24/23
amlodipine 5 mg tablet 5 mg PO DAILY 05/15/23
metoprolol tartrate 25 mg tablet 25 mg PO BID Blood pressure 05/15/23
Review of Systems
-
History Source: Patient
A 12 point ROS was completed and negative except as noted: Yes
Constitutional: Reports No Symptoms
EENT: Reports No Symptoms
Respiratory: Reports No Symptoms
Cardiac: Reports No Symptoms
Abdomen/GI: Reports No Symptoms
: Reports No Symptoms
Musculoskeletal: Reports No Symptoms
Skin: Reports No Symptoms
Neurological: Reports See HPI
Endocrine: Reports No Symptoms
Hematologic/Lymphatic: Reports No Symptoms
Psych: Reports No Symptoms
Physical Exam
Vital Signs
Vital Signs
Temp Pulse Resp BP Pulse Ox
98.3 F 89 23 145/99 96
05/15/23 12:24 05/15/23 16:30 05/15/23 16:30 05/15/23 16:00 05/15/23 16:30
Physical Exam
General: Well Developed, Well Nourished and No Apparent Distress
HEENT: NormoCephalic, Moist mucous membranes and Atraumatic
Respiratory: Clear
Cardiac: S1/S2 and Regular Rhythm; No Murmur or Rub
GI: Soft, Non Tender, Non Distended and Normal Bowel Sounds; No Organomegaly
Rectal: Deferred by Provider
Musculoskeletal: No Clubbing, No Cyanosis and No Edema
Skin: No Rash
Neuro: Nonfocal/grossly intact
Laboratory Results
-
05/15/23 12:40
05/15/23 12:40
Laboratory Results
Total Bilirubin 0.6 mg/dl (0.2-1.3) 05/15/23 12:40
AST 32 U/L (17-59) 05/15/23 12:40
ALT 33 U/L (0-50) 05/15/23 12:40
Alkaline Phosphatase 125 U/L (38-126) 05/15/23 12:40
Data Reviewed
-
Lab Data: Labs Reviewed by me
Old Records: Reviewed
Impression/Plan
-
IMPRESSION:
PLAN:
# Subacute infarct of left occipital lobe after recent mitral valve repair
-As per CT head
-Telemetry monitoring
-Aspirin and Plavix
-Neurochecks per protocol
-Out of 24-hour window for permissive hypertension
-Check A1c and lipid panel
-Check MRI brain, MRA head and neck
-Neurology consulted
-Change statin to atorvastatin 40 mg
Severe mitral regurgitation status post mitral valve replacement on 04/19
Postoperative sinus node dysfunction
-Heart rate normal now
-EKG shows sinus rhythm with incomplete right bundle branch which is old
Nonobstructive CAD
-Continue aspirin and Plavix
Essential hypertension
-Continue amlodipine
- continue metoprolol
Hyperlipidemia
-Switch pravastatin to atorvastatin 40 mg
Prediabetes
-Check A1c
Obstructive sleep apnea
-On CPAP
Obesity
Full code
DVT prophylaxis�SCDs
Regular diet
[2023-05-15] MEDS: PLAVIX 300 MG PO (17:02)
[2023-05-15] MEDS: LOPRESSOR 25 MG PO (20:10)
[2023-05-15] MEDS: LIPITOR 40 MG PO (20:10)
[2023-05-15] MEDS: FIBERCON 625 MG PO (20:27)
[2023-05-15] MEDS: FLEXERIL 10 MG PO (22:39)
[2023-05-15] MEDS: TYLENOL 650 MG PO (22:39)
[2023-05-15] MEDS: VISBIOME 1 CAP PO (22:39)
[2023-05-15] MEDS: VITAMIN C 500 MG PO (22:39)
[2023-05-16] VITALS (7 sets, daily range): BP systolic 118–147; BP diastolic 77–93; PULSE 79; O2SAT 96; BMI 30.3
[2023-05-16 06:27] LABS: Hematocrit 38.4 % (39.0-52.0); Hemoglobin 13.2 g/dL (13.0-18.0); Mean Corp Hgb Conc. 34.4 g/dL (33.0-37.0); Mean Corpuscular Hgb 30.3 pg (27.0-31.0); Mean Corpuscular Volume 88.1 fL (80.0-94.0); Mean Platelet Volume 9.7 fL (7.4-10.4); Platelet Count 222 10^3/uL (130-400); Red Blood Cell Count 4.36 10^6/uL (4.70-6.10); Red Cell Dist. Width 12.3 % (11.5-14.5); White Blood Cell Count 6.3 10^3/uL (4.8-10.8)
[2023-05-16 06:32] LABS: Blood Urea Nitrogen 16 mg/dl (9-20); Calcium 9.9 mg/dl (8.4-10.2); Carbon Dioxide 24 mmol/L (22-30); Chloride 104 mmol/L (98-107); Glucose 106 mg/dl (70-99); HDL Cholesterol 41 mg/dl; LDL Cholesterol, Calculated 127 mg/dl; Potassium 4.6 mmol/L (3.5-5.1); Sodium 135 mmol/L (135-145); Total Cholesterol 217 mg/dl (50-199); Triglyceride 247 mg/dl (10-149); Very Low Density Lipoprotein 49 mg/dl (0-30); eGFR > 60.00
--- NOTE | 2023-05-16 07:54 | CON.CAR ---
Addendum entered and electronically signed by Zachary Ryder MD 05/16/23 12:44:
I saw and examined the patient.
The [employer]'s note was reviewed and I agree with the note.
Comment: We will work towards optimal BP/lipid control and look for AFib. If in-hospital tele is negative we will pursue 30 day RhythmStar Loop Event with [employer]. Defer to neurology for antiplatelet/anticoagulant choices.
Original Note:
Consultation
Consultation Request
Date/Time Consultation Requested: 05/16/23 06:00
Date/Time Consultation Performed: 05/16/23 10:00
Requesting Provider: Dr. James
Performing Provider: AMARA Oropeza for Dr. Ryder
Reason for Consultation: CVA
Medical History
-
Chief Complaint: Visual changes
History of Present Illness:
Joseph Anders is a 67-year-old male (known to Dr. Avila, his primary political consultant), with nonobstructive CAD, hypertension, dyslipidemia, prediabetes, ERNIE on CPAP, and recent mitral valve replacement on 04/19/[address] Salgado presented with a
chief complaint of visual changes. He called the cardiology office and reported visual changes and an elevated blood pressure for him (SBP 140 mmHg). Given his visual changes, he was referred to the emergency department for evaluation. He states
his visual changes started Monday afternoon. He has a smudge in his vision. He denies peripheral vision loss. He was found to have CVA on CT imaging.
Past Medical History
Past Medical History: CAD (Nonobstructive), HTN, Hypercholesterolemia, Valvular Disease (Mitral valve repair [04/19/23]) and Other (Prediabetes)
Past Surgical History: Cardiac
Social History
Tobacco: Non-Smoker
Alcohol: None
Drug: None
Living: With Family
Family History
Family History: Reviewed & Not Pertinent
Allergies / Home Medications
Allergy/AdvReac Type Severity Reaction Status Date / Time
No Known Allergies Allergy Verified 04/19/23 05:17
Medication Instructions Recorded Confirmed Type
L.acidoph, paracasei,B. lactis 10 1 ea PO HS Supplement 03/04/20 05/15/23 History
billion cell capsule
aspirin 81 mg tablet,delayed 81 mg PO HS Blood Clot 03/04/20 05/15/23 History
release Prevention/Tx
multivitamin 1 ea PO DAILY Supplement 03/09/20 05/15/23 History
ascorbic acid (vitamin C) 500 mg 500 mg PO HS Supplement 03/21/23 05/15/23 History
tablet (Vitamin C)
fiber 1 cap PO BID Supplement 03/21/23 05/15/23 History
omega 1-dal-bve-fish oil 1,200 mg 1 cap PO BID Supplement 03/21/23 05/15/23 History
(144 mg-216 mg) capsule (Fish Oil)
pravastatin 40 mg tablet 40 mg PO DAILY High Cholesterol 04/10/23 05/15/23 History
acetaminophen 325 mg tablet 650 mg PO Q4HPRN PRN mild 04/22/23 05/15/23 Rx
pain,headache,temp >101F #0 tabs
cyclobenzaprine 10 mg tablet 10 mg PO HS Muscle spasms #30 tabs 04/24/23 05/15/23 Rx
amlodipine 5 mg tablet 5 mg PO DAILY 05/15/23 05/15/23 History
metoprolol tartrate 25 mg tablet 25 mg PO BID Blood pressure 05/15/23 05/15/23 History
Review of Systems
-
History Source: Patient
All other systems: Negative unless noted
EENT: Other (Visual changes as documented in HPI)
Cardiac: No Symptoms
Abdomen/GI: No Symptoms
Neurological: No Symptoms
Physical Exam
Vital Signs
Temp Pulse Resp BP Pulse Ox
98.3 F 86 18 118/77 94
05/15/23 12:24 05/16/23 06:45 05/16/23 06:45 05/16/23 00:05 05/16/23 00:08
Lab Results
05/16/23 06:02
05/16/23 06:02
Physical Exam
General: Well Developed, Well Nourished, No Apparent Distress and Comfortable
HEENT: Normocephalic, Anicteric and Moist Mucous Membranes
Respiratory: Clear and Non Labored Respirations
Cardiac: S1/S2 and Regular Rhythm
Breast: Deferred by me
GI: Soft, Non Tender, Non Distended and Normal Bowel Sounds
Rectal: Deferred by Provider
Genito-urinary: No Costovertebral Tender
Musculoskeletal: No Clubbing, No Cyanosis and No Edema
Skin: Warm and Dry
Neuro: AO x 3
Hematologic/Lymphatic: No Lymphadenopathy
Psych: Calm
Impression / Plan
-
CVA
-CT: Findings suggesting a probable subacute small infarct in the left occipital lobe, MRI today
-Transition pravastatin to atorvastatin
-He is on daily ASA
-Echocardiogram today
Severe mitral regurgitation S/P MV repair (04/19/23) by Dr. Salgado
-S/p complex/radical mitral valve repair (32 mm band annuloplasty, 2 pairs of Superior-Jose cords to the anterior leaflet, 2 pairs of Superior-Jose cords to the posterior leaflet, triangular resection of the posterior leaflet at the P2 scallop, free edge
remodeling of the posterior leaflet, free edge remodeling at the A2 A3 scallop)
-Mean gradient is 5mmHg by TTE 04/24/23
Prior sinus node dysfunction post operatively, resolved
CAD, non obstructive by cardiac cath
HLD, goal LDL < 70
Pre-diabetes, Hgba1c 6%
Data Reviewed
-
EKG: Report Reviewed by me (Sinus rhythm, iRBBB, rate 92)
CT Scan: Report Reviewed by me (Head CT: Findings suggesting a probable subacute small infarct in the left occipital lobe.)
Labs: Labs Reviewed by me
Old Records: Reviewed
--- NOTE | 2023-05-16 08:37 | PTCARENOTE ---
Received patient from ED via wheelchair. AAOx3, ambulated to bed. NIH-0. Patient complaining of intermittent 'smudges' noted in center of BL eyes. Assessed and oriented to room. Call anna in close reach.
--- NOTE | 2023-05-16 08:37 | CON.NEURO4 ---
Addendum entered and electronically signed by Moris Muñoz MD 05/16/23 14:38:
Studies reviewed.
I have personally examined the patient. I reviewed and agree with the BAG WASHER's Note.
My addenda:
Awake, alert, interactive. No acute distress.
Speech intact. Right eye central visual field decline to direct testing. Otherwise intact visual lala bilaterally
Follows 2-step requests w/o difficulty. No tremor.
Extra-ocular movements grossly intact.
Facial movements full and symmetric. Hearing intact to normal conversational volume.
Normal UE movements bilaterally.
Neck: full ROM.
Chest: no dyspnea
Heart: no JVD
Ext: (-) Clubbing, (-) Cyanosis, (-) Edema
IMPRESSIONS/RECOMMENDATIONS:
Abrupt onset of right eye visual field decline centrally
Most likely secondary to acute ischemic occipital lobe injury in the form of stroke
Continue dual antiplatelet therapy for 21 days, then aspirin
Check neuroimaging
Use atorvastatin 80 mg daily as replacement for pravastatin
Goal of normotension
Goal of normoglycemia
Will continue to follow pending results.
Original Note:
Documented by User: Loli Dudley NP 05/16/23 10:43
Consultation - Neurology 4
-
CONSULTING PHYSICIAN: Moris Muñoz MD
REFERRING PHYSICIAN: Hospitalists/Dr. Fitch
DICTATED BY: AMARA Ho
DATE/TIME OF REQUEST: 05/15/23
DATE/TIME OF CONSULTATION: 05/16/23
Reason for Consultation: Vision change
History of Present Illness:
This is a 67-year-old left-handed male s/p MVR on 04/19/23 who has presented to the hospital on 05/15/23 with report of vision changes. Patient reports feeling in his usual state two days ago on 05/14/23 when around 1630 while looking at his phone, he
suddenly developed a 'wavy fingerprint' obstruction in the center of his vision that did not resolve with closing one eye or the other. The visual obstruction starts out in the center of his vision and then appear to shift to the right. The vision
change has remained constant since that time and he reports having difficulty working on his computer yesterday due to not being able to see normally, prompting him to call his PCP who referred him to the ER for evaluation. On arrival to the ER, CT
head was obtained and demonstrates a probably subacute left occipital lobe ischemic infarct. NIHSS was a 0. Patient was not a candidate for TNK/IAT due to NIHSS 0 and outside of time window. He reports taking aspirin 81mg daily even pre-MVR, he
denies being on Plavix. He was loaded with Plavix in the ER. Currently, he denies any headache, dizziness, speech/swallow difficulty, numbness, weakness, nausea, chest pain, palpitations, and shortness of breath. He has reported mild dyspnea with
exertion since his MVR, which he thought would improve with time. He denies any history of visual changes, migraines, TIA, or stroke in the past.
Past Medical History: Severe mitral valve regurgitation, CAD, HTN, HLD, prediabetes, ERNIE (cpap)
Surgical History: MVR 04/23/23
Family History: Reviewed and noncontributory.
Social History: Occasional alcohol. Denies tobacco and illicit drug use.
Allergies: No known allergies.
Home Medications: See below.
Review of Symptoms:
Patient denies any fever, headache, chest pain, shortness of breath, GI or symptoms.
�Per the HPI.�All systems are reviewed negative except above.
Physical Exam:
The patient is afebrile, abdomen is nondistended, breathing is unlabored, skin is warm and dry, no edema.
NIH Stroke Scale:
I performed the NIH stroke scale on the patient on 05/16/23 at 0840. The patient scored 1 points on the NIH stroke scale assessment, which were assigned as follows: See below.
Neurologic Examination:
The patient is awake, alert and oriented x 3. He is able to follow commands and answer questions appropriately. There is no aphasia or dysarthria. On cranial nerve assessment, pupils are 3 mm bilateral, round and reactive to light and
accommodation. Visual lala are absent in the right upper center only. Extraocular movements are intact. Facial sensations are intact and bilaterally symmetrical, there is no facial asymmetry. Hearing is intact bilaterally to normal conversation
volume. Tongue palate and uvula are midline. Sternocleidomastoid strengths are full bilaterally. Motor strengths are 5/5 bilateral upper and lower extremities on medical research [place] scale. There is no drift or involuntary movement noted. Deep
tendon reflexes are 2+ bilateral upper and lower extremities and Babinski is absent bilaterally. There was no extinction noted on double simultaneous stimulation. Coordination is intact by finger to nose bilaterally.
Lab Results: See below.
Neuro Imaging:
1. CT Head 05/15/23: Findings suggesting a probable subacute small infarct in the left occipital lobe. Clinical correlation recommended. Mild nonacute sinusitis.
Differentials for the patient's presentation include:
1. Subacute left occipital lobe ischemic stroke likely producing patient's vision change.
2. S/P MVR one month ago.
3. Dyslipidemia.
Patient has the following risk factors for their symptoms: MVR 04/19/23, HTN, HLD
IV Tenecteplase/IAT candidacy: Patient was not a candidate for TNK/IAT due to NIHSS 0 and outside of time window.
Recommendations:
-Continue DAPT with aspirin 81mg and Plavix 75mg daily x21 days. After 21 days, discontinue Plavix and continue aspirin 81mg daily only, indefinitely.
-MRI brain noncontrast ordered/pending.
-MRA head/neck w/ and w/o ordered/pending.
-TTE ordered/pending. Cardiology consulted.
-Goal normotension.
-LDL goal <70. LDL is 127. Home pravastatin 40mg increased to atorvastatin 80mg daily.
-Goal normoglycemia, hbA1c is 6.0.
-NIHSS and neurological checks per unit guidelines.
-Provide patient with a stroke education packet.
-PT/OT/ST evaluations.
-DVT prophylaxis.
-Will follow pending results.
Discussed patient care with: Dr. Muñoz, the patient
NIH Stroke Score
Subsequent NIH Scale
Date of Subsequent NIH Scale: 05/16/23
Time of Subsequent NIH Scale: 08:40
NIH Stroke Score
Level of Consciousness: 0 - Alert
LOC Questions: 0-Answers both correctly
LOC Commands: 0-Performs both correctly
Best Horizontal Gaze: 0-Normal
Visual Lala: 1=Partial hemianopia
Facial Palsy: 0=Normal, symmetrical
Motor - Right Arm: 0=No drift 10 seconds
Motor - Left Arm: 0=No drift 10 seconds
Motor - Right Le-No drift 5 seconds
Motor - Left Le-No drift 5 seconds
Limb Ataxia: 0-Absent
Sensation: 0-Normal
Best Language: 0-No aphasia
Dysarthria: 0-Normal
Extinction and Inattention: 0-No abnormality
Total Score:: 1
Modified [place] (mRS) Score
Modified [place] Scale (mRS): Moderate disability. Requires some help, able to walk unassisted.
Score: 3
Vital Signs and Labs
-
Vital Signs and Labs:
Vital Signs
Temp Pulse Resp BP Pulse Ox
97.8 F 100 16 147/84 98
05/16/23 07:55 05/16/23 07:55 05/16/23 07:55 05/16/23 07:55 05/16/23 07:55
Lab Results
05/16/23 06:02
05/16/23 06:02
Sodium 135 mmol/L (135-145) 05/16/23 06:02
Potassium 4.6 mmol/L (3.5-5.1) 05/16/23 06:02
BUN 16 mg/dl (9-20) 05/16/23 06:02
Glucose 106 mg/dl (70-99) H 05/16/23 06:02
Calcium 9.9 mg/dl (8.4-10.2) 05/16/23 06:02
LDL Cholesterol, Calc 127 mg/dl 05/16/23 06:02
Medications
-
Active Medications
Generic Name Dose Route Start Last Admin
Trade Name Freq PRN Reason Stop Dose Admin
Acetaminophen 650 mg 05/15/23 19:38
Acetaminophen 650 Mg Rectal Suppository RECTAL 06/12/23 19:37
Q4HPRN PRN
KAHN, mild pain, or temp >100.4F
Acetaminophen 650 mg 05/15/23 19:38 05/15/23 22:39
Acetaminophen 325 Mg Tablet PO 06/12/23 19:37 650 mg
Q4HPRN PRN Administration
KAHN, mild pain, or temp >100.4F
Amlodipine Besylate 5 mg 05/16/23 08:00 05/16/23 09:35
Amlodipine 5 Mg Tablet PO 06/13/23 07:59 5 mg
DAILY MARICRUZ Administration
Ascorbic Acid 500 mg 05/15/23 22:00 05/15/23 22:39
Ascorbic Acid 500 Mg Tablet PO 06/12/23 21:59 500 mg
HS MARICRUZ Administration
Aspirin 81 mg 05/16/23 08:00 05/16/23 09:36
Aspirin 81 Mg Chewable Tablet PO 06/13/23 07:59 81 mg
DAILY MARICRUZ Administration
Atorvastatin Calcium 80 mg 05/16/23 18:00
Atorvastatin (Lipitor) 80 Mg Tablet PO 06/13/23 17:59
QPM MARICRUZ
Calcium Polycarbophil 625 mg 05/15/23 20:00 05/16/23 09:35
Calcium Polycarbophil 625 Mg Tablet PO 06/12/23 19:59 625 mg
BID MARICRUZ Administration
Clopidogrel Bisulfate 75 mg 05/16/23 08:00 05/16/23 09:36
Clopidogrel 75 Mg Tablet PO 06/13/23 07:59 75 mg
DAILY MARICRUZ Administration
Cyclobenzaprine HCl 10 mg 05/15/23 22:00 05/15/23 22:39
Cyclobenzaprine 10 Mg Tablet PO 06/12/23 21:59 10 mg
HS MARICRUZ Administration
Lactobacillus/Bifidobacterium 1 cap 05/15/23 22:00 05/15/23 22:39
Lactobac/Bifidobac (Visbiome) PO 06/12/23 21:59 1 cap
HS MARICRUZ Administration
Metoprolol Tartrate 25 mg 05/15/23 20:00 05/16/23 09:36
Metoprolol 25 Mg Regular Release Tablet PO 06/12/23 19:59 25 mg
BID MARICRUZ Administration
Home Medications
Medication Instructions Recorded
L.acidoph, paracasei,B. lactis 10 1 ea PO HS Supplement 03/04/20
billion cell capsule
aspirin 81 mg tablet,delayed 81 mg PO HS Blood Clot 03/04/20
release Prevention/Tx
multivitamin 1 ea PO DAILY Supplement 03/09/20
ascorbic acid (vitamin C) 500 mg 500 mg PO HS Supplement 03/21/23
tablet (Vitamin C)
fiber 1 cap PO BID Supplement 03/21/23
omega 4-kdg-hie-fish oil 1,200 mg 1 cap PO BID Supplement 03/21/23
(144 mg-216 mg) capsule (Fish Oil)
pravastatin 40 mg tablet 40 mg PO DAILY High Cholesterol 04/10/23
acetaminophen 325 mg tablet 650 mg PO Q4HPRN PRN mild 04/22/23
pain,headache,temp >101F #0 tabs
cyclobenzaprine 10 mg tablet 10 mg PO HS Muscle spasms #30 tabs 04/24/23
amlodipine 5 mg tablet 5 mg PO DAILY 05/15/23
metoprolol tartrate 25 mg tablet 25 mg PO BID Blood pressure 05/15/23

Documented by User: Moris Muñoz MD 05/16/23 14:29
NIH Stroke Score
NIH Stroke Score
Total Score:: 1
Modified [place] (mRS) Score
Score: 3
--- NOTE | 2023-05-16 09:27 | PTOTSP ---
The patient is independent with ambulation and elevations, no mobility deficits noted regarding strength, balance, or coordination. No PT needs identified at this time, will sign off. Defer to OT regarding discharge recommendations for followup
regarding his vision.
[2023-05-16] MEDS: FIBERCON 625 MG PO ×2 (09:35→20:15)
[2023-05-16] MEDS: NORVASC 5 MG PO (09:35)
[2023-05-16] MEDS: LOW STRENGTH ASPIRIN 81 MG PO (09:36)
[2023-05-16] MEDS: PLAVIX 75 MG PO (09:36)
[2023-05-16] MEDS: LOPRESSOR 25 MG PO ×2 (09:36→20:15)
--- NOTE | 2023-05-16 11:12 | W.PN.HOSP.TC ---
Today's Communication/Plan
-
.
Assessment / Plan
Assessment / Plan
Physical Exam
General:�Comfortable and Conversant
HEENT:�Anicteric and Moist mucous membranes
Respiratory:�Clear and Non Labored Respirations
Cardiac:�S1/S2 and Regular Rhythm
GI:�Soft and Non Tender
Musculoskeletal:�No Clubbing, No Cyanosis and Edema, Right Lower Extremity
Skin:�Warm, Dry and Other (Moderate erythema LLE extending from ankle to just below the Musculoskeletal: Erythema extends outside previously drawn chand)
Neuro:�Awake, Alert, Oriented and Non-focal/grossly intact, followed commands.Psych: calm, no agitation.
# Subacute infarct of left occipital lobe after recent mitral valve repair
The video defect is central and bilateral and does not seem to change
Continue with a neurocheck
Continue with dual antiplatelet therapy. He was on aspirin. Will do Plavix upon completion of intense course of antiplatelet
Plan for MRI today
Repeat echocardiogram
Continue to control blood pressure
Appreciate neurology and cardiology input
Severe mitral regurgitation status post mitral valve replacement on 04/19
Postoperative sinus node dysfunction
-Heart rate normal now
-EKG shows sinus rhythm with incomplete right bundle branch which is old
Appreciate cardiology input
#Nonobstructive CAD
No chest pain
-Continue aspirin and Plavix
#Essential hypertension
Target less than 140/90
-Continue amlodipine but increase the dose to 10 mg
- continue metoprolol
Hyperlipidemia
-Switch pravastatin to atorvastatin 40 mg
Prediabetes
Hemoglobin A1c 6.0 in March 2023
#Obstructive sleep apnea
-On CPAP
Obesity
Full code
DVT prophylaxis�SCDs patient does not want pharmacological form of prophylaxis.
Low-cholesterol diet
Total time spent to see the patient, examine the patient on the floor, review data and lab results, discuss treatment plan with patient, nursing staff around 55 minutes
Anticipated Discharge: 24 - 48 hours
Subjective/Interval History
-
Date of Service: May 16, 2023
No chest pain
No sob
No fevers
Objective Data
-
Labs:
Laboratory Results
05/16/23
06:02
WBC 6.3
Hgb 13.2
Hct 38.4 L
Plt Count 222
Sodium 135
Potassium 4.6
Chloride 104
Carbon Dioxide 24
BUN 16
Creatinine 0.7
Glucose 106 H
Calcium 9.9
Vital Signs:
Vital Signs
Temp Pulse Resp BP Pulse Ox
97.8 F 100 16 147/84 98
05/16/23 07:55 05/16/23 07:55 05/16/23 07:55 05/16/23 07:55 05/16/23 07:55
--- NOTE | 2023-05-16 11:41 | PTOTSP ---
SPEECH THERAPY SWALLOW EVALUATION:
Patient presents with oropharyngeal swallow function grossly WFL at this time. Recommend Regular texture diet, thin liquids. Medications whole with liquid. Swallow therapy is not indicated at this time. Speech therapy to follow up for full
speech/language/cognitive communication evaluation if MRI positive for acute CVA, though no obvious speech/language/cognitive communication impairments were noted during swallow evaluation.
RECOMMEND:
1) Regular texture diet, thin liquids
2) Medications whole with liquid
3) Swallow therapy is not indicated at this time
4) Speech therapy to follow up for full speech/language/cognitive communication evaluation if MRI positive for acute CVA
--- NOTE | 2023-05-16 17:01 | CM ---
CM following re: d/c planning
Chart reviewed
CM met with the patient at bedside; IA completed
Pt was initially here as observation & ADAME letter was explained and copy provided however pt had a LOC change to inpt
Pt states he and his spouse reside in a [place] with 2STE
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
Pt has no past SNF hx, has had [facility] for home care and the only DME owned is a pair of crutches
Pt confirms prescription coverage and rx's are filled at [facility]
Pt PCP-Dr. Nick Carlin
Per PT eval. patient has no skilled therapy needs
CM will continue to follow patient progress and assist with any needs at d/c as applicable
PLAN; d/c home no needs anticipated
[2023-05-16] MEDS: LIPITOR 80 MG PO (17:52)
[2023-05-16] MEDS: FLEXERIL 10 MG PO (20:18)
[2023-05-16] MEDS: VITAMIN C 500 MG PO (20:18)
[2023-05-16] MEDS: VISBIOME 1 CAP PO (20:18)
[2023-05-17 03:25] VITALS: BP 121/80
[2023-05-17] MEDS: TYLENOL 650 MG PO (04:37)
[2023-05-17 07:55] VITALS: BP 132/90
[2023-05-17] MEDS: FIBERCON 625 MG PO (08:22)
[2023-05-17] MEDS: PLAVIX 75 MG PO (08:22)
[2023-05-17] MEDS: LOPRESSOR 25 MG PO (08:22)
[2023-05-17] MEDS: LOW STRENGTH ASPIRIN 81 MG PO (08:22)
[2023-05-17] MEDS: NORVASC 5 MG PO (08:22)
--- NOTE | 2023-05-17 09:04 | W.PN.NEURO.1 ---
Today's Communication / Plan
-
re-check MRI of brain in 1 year to determine if progression of cerebral amyloid angiopathy
continue occupational therapy
Continue dual antiplatelet therapy for 21 days, then aspirin
Use atorvastatin 80 mg daily as replacement for pravastatin
goal of normotension
Neuro Assessment/Plan
Assessment
Abrupt onset of right eye visual field decline centrally
Most likely secondary to acute ischemic occipital lobe injury in the form of stroke as seen on MRI of brain (left occipital lobe)
Also, cerebral amyloid angiopathy may be present
Plan
re-check MRI of brain in 1 year to determine if progression of cerebral amyloid angiopathy
continue occupational therapy
Continue dual antiplatelet therapy for 21 days, then aspirin
Use atorvastatin 80 mg daily as replacement for pravastatin
goal of normotension
Will follow as outpatient
Subjective/Objective
Subjective Data
Date of Service: May 17, 2023
Unchanged.
Objective Data
Vital Signs
Temp Pulse Resp BP Pulse Ox
36.7 C 97 18 132/90 94
05/17/23 07:55 05/17/23 08:22 05/17/23 07:55 05/17/23 08:22 05/17/23 07:55
Lab Results
05/16/23 06:02
05/16/23 06:02
Sodium 135 mmol/L (135-145) 05/16/23 06:02
Potassium 4.6 mmol/L (3.5-5.1) 05/16/23 06:02
BUN 16 mg/dl (9-20) 05/16/23 06:02
Glucose 106 mg/dl (70-99) H 05/16/23 06:02
Calcium 9.9 mg/dl (8.4-10.2) 05/16/23 06:02
LDL Cholesterol, Calc 127 mg/dl 05/16/23 06:02
Patient Allergies
No Known Allergies Allergy (Verified 04/19/23 05:17)
Review of Systems
-
History Source: Patient
All other systems: Reviewed and negative
EENT: Decreased Vision
Respiratory: Negative Trouble Breathing
Cardiac: Negative Chest Pain
Neuro: Negative Dizzy or Headache
Physical Exam
-
General: No Apparent Distress and Appears Stated Age
Eyes: Round OU, [place] Conjunctivae and No Ptosis
HEENT: Anicteric and Moist Mucous Membranes
Neck: No Bruits Bilaterally
Respiratory: No Dyspnea
Cardiac: No JVD
GI: Non-distended
Skin: Unremarkable
Extremities: No Clubbing, No Cyanosis and No Edema
Psych: Intact Judgement/Insight
Extended Neurological Exam
Mood & Affect: Mood Unremarkable and Affect Unremarkable
Attention Span & Concentration: Awake, Alert and Interactive
Memory: Unremarkable
Tremor: Hand Tremor Absent and Head Tremor Absent
Speech: Quality Unremarkable and Quantity Unremarkable
Cranial Nerve II: Left Eye: Pupillary Size Unremarkable and Visual Lala Grossly Intact
Cranial Nerve II: Right Eye: Pupillary Size Unremarkable and Visual Lala Grossly Intact
Cranial Nerves III, IV, : Extraocular Movement: Grossly Intact
Cranial Nerve VII: Facial Symmetry: Normal Facial Symmetry
Cranial Nerve VIII: Hearing: Unremarkable Hearing to Normal Conversational Volume
Cranial Nerve XI: Shoulder Shrug: Unremarkable
Muscle Strength, Overall: Spontaneously Moves (All extremities)
Muscle Bulk & Tone: Bulk Unremarkable and Tone Unremarkable
Touch Sensation: Unremarkable
Data Reviewed
-
Labs: Report Reviewed
Reviewed with: Physician, Nurse Practioner and Patient
Old Records: Summarized
--- NOTE | 2023-05-17 09:57 | W.PN.CD ---
Today's Communication / Plan
-
- we will arrange 30 day [facility] Loop Event with [employer].�
- no cardiac contraindication to discharge
- MEDS: below
- Follow up:
- Has Alphonso Salgado on Mat 7 at 1:40
- Alessia Ziegler May 18 at 11:00
Impression / Plan
-
CVA
-Transitioned pravastatin to atorvastatin
-He is on daily ASA -> neurology has added clopidogrel
-Echocardiogram unremarkable
Severe mitral regurgitation S/P MV repair (04/19/23) by Dr. Salgado
-S/p complex/radical mitral valve repair (32 mm band annuloplasty, 2 pairs of Stanton-Jose cords to the anterior leaflet, 2 pairs of Stanton-Jose cords to the posterior leaflet, triangular resection of the posterior leaflet at the P2 scallop, free edge
remodeling of the posterior leaflet, free edge remodeling at the A2 A3 scallop)
-Mean gradient is 5mmHg by TTE 04/24/23
NSVT - EF/labs normal
Prior sinus node dysfunction post operatively, resolved
CAD, non obstructive by cardiac cath
HLD, goal LDL < 70
Pre-diabetes, Hgba1c 6%
Dispo
- we will arrange 30 day [facility] Loop Event with [employer].�
- no cardiac contraindication to discharge
- MEDS: below
- Follow up:
- Has Alphonso Salgado on Mat 7 at 1:40
- Alessia Ziegler May 18 at 11:00
Generic Name Dose Route Start Last Admin
Trade Name Freq PRN Reason Stop Dose Admin
Clopidogrel Bisulfate 75 mg 05/16/23 08:00
Clopidogrel 75 Mg Tablet PO 06/13/23 07:59
DAILY MARICRUZ
Aspirin 81 mg 05/16/23 08:00
Aspirin 81 Mg Chewable Tablet PO 06/13/23 07:59
DAILY MARICRUZ
Amlodipine Besylate 5 mg 05/16/23 08:00
Amlodipine 5 Mg Tablet PO 06/13/23 07:59
DAILY MARICRUZ
Metoprolol Tartrate 25 mg 05/15/23 20:00
Metoprolol 25 Mg Regular Release Tablet PO 06/12/23 19:59
BID MARICRUZ
Atorvastatin Calcium 80 mg 05/16/23 18:00
Atorvastatin (Lipitor) 80 Mg Tablet PO 06/13/23 17:59
QPM MARICRUZ
Physical Exam
Vital Signs/Labs
Vital Signs
Temp Pulse Resp BP Pulse Ox
36.7 C 97 18 132/90 94
05/17/23 07:55 05/17/23 08:22 05/17/23 07:55 05/17/23 08:22 05/17/23 07:55
05/16/23 05/17/23 05/18/23
06:59 06:59 06:59
Actual Weight 211 lb 8 oz
05/16/23 06:02
05/16/23 06:02
Triglycerides 247 mg/dl (10-149) H 05/16/23 06:02
LDL Cholesterol, Calc 127 mg/dl 05/16/23 06:02
VLDL Cholesterol, Calc 49 mg/dl (0-30) H 05/16/23 06:02
HDL Cholesterol 41 mg/dl 05/16/23 06:02
Physical Exam
Constitutional: No acute distress
EENT: Anicteric and Moist mucous membranes
Cardiovascular: Rhythm & rate is regular, Pedal edema is absent, Systolic murmur absent and Diastolic murmur absent
Respiratory: Respiratory effort normal
GI: Soft, Distention absent, Non tender and Normal bowel sounds
Neuro/Psych: Alert
Data Reviewed
-
Date of Service: May 17, 2023
Echo: Other (no AF)
[2023-05-17] MEDS: VITAMIN D3 (cholecalciferol) 50 MCG PO (10:45)
--- NOTE | 2023-05-17 10:47 | W.DCSUMMARY ---
Discharge Summary
Discharge Data
Date of Admission: 05/16/23
Date of Discharge: 05/17/23
-
Pending Results: No
Hospital Course
67 years old male who presented with visual defect. Patient prescribed black/blurry spots in central vision in both eyes for a few days duration. Imaging studies of the brain showed acute to subacute left posterior occipital lobe stroke. Patient
was evaluated by neurologist. He had echocardiogram that did not show a cardiac source of embolus. Neurologist recommended dual antiplatelet therapy for 21 days and then to continue on aspirin with high potency statin therapy. Patient was taking
aspirin at home. Brain magnetic resonance imaging showed cerebral amyloid angiopathy. Patient was advised to follow-up with neurologist and to repeat imaging study in 1 year to see the progression. Patient was taking pravastatin for cholesterol
management. His low-density lipoprotein was 137. Statin therapy was changed to high-dose atorvastatin. Potential side effects of Lipitor were discussed with the patient and his and he verbalized understanding. Patient remained
hemodynamically stable. He was discharged in a stable condition.
Physical Exam
General:�Comfortable and Conversant
HEENT:�Anicteric and Moist mucous membranes
Respiratory:�Clear and Non Labored Respirations
Cardiac:�S1/S2 and Regular Rhythm
GI:�Soft and Non Tender
Musculoskeletal:�No Clubbing, No Cyanosis and Edema, Right Lower Extremity
Skin:�Warm, Dry and Other (Moderate erythema LLE extending from ankle to just below the Musculoskeletal: Erythema extends outside previously drawn chand)
Neuro:�Awake, Alert, Oriented and Non-focal/grossly intact, followed commands.
Psych: calm, no agitation.
Total discharge time spent to see the patient, examine the patient on the floor, review data and lab results, discuss treatment plan with patient, , nursing staff around 65 minutes
Discharge Plan
-
Patient Disposition: Home (Routine Discharge)
Discharge Diagnosis/Procedures: Left posterior occipital lobe stroke
Optimal blood pressure less than 140/90. We changed your cholesterol medication. We stopped pravastatin and we put you on high-dose Lipitor. Potential side effects of statin include muscle weakness/myositis, elevated liver enzyme. If you
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 You will need to follow with neurologist in 1 month.
Diet: Low Fat and Low Sodium
Referrals:
Tiffanie Ziegler NP [Specified Professional Personl] - 05/18/23 1:40 pm
Nick Carlin MD [Family Provider] - in one to two weeks
Moris Muñoz MD [Active] - in one month
Queta Faustin, GRACIE [Non-Admitting Privileges] - in one to two weeks
Prescriptions:
New
atorvastatin 80 mg Tablet
80 mg PO QPM Qty: 30 0RF
clopidogrel 75 mg Tablet
75 mg PO DAILY Qty: 21 0RF
cholecalciferol (vitamin D3) 50 mcg (2,000 unit) Tablet
50 mcg PO DAILY Qty: 30 0RF
Continued
aspirin 81 MG tablet,delayed release (DR/EC)
81 mg PO HS
L.acidoph, paracasei,B. lactis 1 EACH capsule
1 ea PO HS
multivitamin 1 EACH tablet
1 ea PO DAILY
ascorbic acid (vitamin C) [Vitamin C] 500 mg Tablet
500 mg PO HS
fiber Capsule
1 cap PO BID
omega 7-wsa-ghq-fish oil [Fish Oil] 1,200 (144-216) mg Capsule
1 cap PO BID
acetaminophen 325 mg Tablet
650 mg PO Q4HPRN PRN (Reason: mild pain,headache,temp >101F ) Qty: 0 0RF
cyclobenzaprine 10 mg Tablet
10 mg PO HS Qty: 30 0RF
amlodipine 5 mg Tablet
5 mg PO DAILY
metoprolol tartrate 25 mg tablet
25 mg PO BID
Discontinued
pravastatin 40 mg Tablet
40 mg PO DAILY
Discharge Orders:
Discharge Patient (As Directed); Ordered 05/17/23
Ordered By: Alex James
[2023-05-17 11:40] VITALS: BP 117/83
--- NOTE | 2023-05-17 15:52 | CM ---
CM following re: d/c planning
Chart reviewed
Pt is medically stable for d/c
IMM was reviewed and copy provided
Pt to f/u with outpatient OT
No additional d/c needs to note
PLAN; d/c home with recommendation for outpatient OT
== END 2023-05-17 15:28 | disposition home or self-care (01) | DRG 93 ==
LOC: 4 EAST ACU 11:12
PROVIDERS: Physician Assistant Medical; ADMITTING PHYSICIAN Hospitalist; ATTENDING PHYSICIAN Internal Medicine; CONSULT PHYSICIAN Psychiatry & Neurology Neurology; EMERGENCY PHYSICIAN Emergency Medicine; FAMILY PHYSICIAN Family Medicine; OTHER PHYSICIAN Internal Medicine Cardiovascular Disease
DX: I97.820 Postprocedural cerebrovascular infarction following cardiac surgery (principal); Z95.2 Presence of prosthetic heart valve; I34.0 Nonrheumatic mitral (valve) insufficiency; I25.10 Atherosclerotic heart disease of native coronary artery without angina pectoris; Z79.02 Long term (current) use of antithrombotics/antiplatelets; Z79.82 Long term (current) use of aspirin; I10 Essential (primary) hypertension; E78.00 Pure hypercholesterolemia, unspecified; G47.33 Obstructive sleep apnea (adult) (pediatric); E66.9 Obesity, unspecified; Z68.30 Body mass index [BMI] 30.0-30.9, adult; I68.0 Cerebral amyloid angiopathy
CPT/HCPCS: 93308; 70450; 70544; 70548; 70551; 80048; 80053; 80061; 85025; 85027; 92610; 93005; 93321; 93325; 97161; 97166; 99285; A9585

== ENCOUNTER 2023-06-09 14:54 | Outpatient (RCR) | payer MEDICARE, OTHER, SELFPAY | END 2023-06-09 23:59 | disposition home or self-care (01) | LOC: CRHB 14:54 | PROVIDERS: ATTENDING PHYSICIAN Internal Medicine Cardiovascular Disease; FAMILY PHYSICIAN Family Medicine | DX: Z95.4 Presence of other heart-valve replacement (principal) | CPT/HCPCS: G0422; G0423 ==

== ENCOUNTER 2023-06-26 07:16 | Outpatient (RCR) | payer MEDICARE, OTHER, SELFPAY | END 2023-06-26 23:59 | disposition home or self-care (01) | LOC: ROT 07:16 | PROVIDERS: ATTENDING PHYSICIAN Nurse Practitioner Adult Health; FAMILY PHYSICIAN Family Medicine | DX: I69.312 Visuospatial deficit and spatial neglect following cerebral infarction (principal); Z73.6 Limitation of activities due to disability; I10 Essential (primary) hypertension | CPT/HCPCS: 97167; 97530 ==

== ENCOUNTER 2023-07-07 14:48 | Outpatient (RCR) | payer MEDICARE, OTHER, SELFPAY | END 2023-07-07 23:59 | disposition home or self-care (01) | LOC: CRHB 14:48 | PROVIDERS: ATTENDING PHYSICIAN Internal Medicine Cardiovascular Disease; FAMILY PHYSICIAN Family Medicine | DX: I34.0 Nonrheumatic mitral (valve) insufficiency (principal); Z95.4 Presence of other heart-valve replacement | CPT/HCPCS: G0422; G0423 ==

== ENCOUNTER 2023-07-31 14:32 | Outpatient (RCR) | payer MEDICARE, OTHER, SELFPAY | END 2023-07-31 23:59 | disposition home or self-care (01) | LOC: CRHB 14:32 | PROVIDERS: ATTENDING PHYSICIAN Internal Medicine Cardiovascular Disease; FAMILY PHYSICIAN Family Medicine | DX: I34.0 Nonrheumatic mitral (valve) insufficiency (principal); Z95.4 Presence of other heart-valve replacement | CPT/HCPCS: G0422; G0423 ==

== ENCOUNTER → 2023-10-10 08:16 | Outpatient (REF) | payer MEDICARE, OTHER, SELFPAY | LOC: HWRCS 08:16 | PROVIDERS: ATTENDING PHYSICIAN Internal Medicine; FAMILY PHYSICIAN Family Medicine | DX: Z98.890 Other specified postprocedural states (principal) | CPT/HCPCS: 93306 ==

== ENCOUNTER → 2024-09-18 08:20 | Outpatient (REF) | payer MEDICARE, OTHER, SELFPAY | LOC: HWRCS 08:20 | PROVIDERS: ATTENDING PHYSICIAN Thoracic Surgery (Cardiothoracic Vascular Surgery); FAMILY PHYSICIAN Family Medicine; REFERRING PHYSICIAN Internal Medicine | DX: Z98.890 Other specified postprocedural states (principal) | CPT/HCPCS: 93306 ==

== ENCOUNTER → 2024-11-29 11:29 | Outpatient (REF) | payer MEDICARE, OTHER, SELFPAY | LOC: RAD 11:29 | PROVIDERS: ATTENDING PHYSICIAN Family Medicine | DX: M25.572 Pain in left ankle and joints of left foot (principal); M25.672 Stiffness of left ankle, not elsewhere classified | CPT/HCPCS: 73610 ==